=== PATIENT | male | born 1965 | race African-American/Black ===

== ENCOUNTER 2017-01-29 04:45 | Emergency (ER) | payer SELFPAY ==
[2017-01-29 05:37] LABS: Band 1 % (5-11); Hematocrit 31.7 % (42.0-52.0); Hypochromia SLIGHT = 6-15 cells (100X) (0-5/hpf); Mean Platelet Volume 6.8 fL (7.4-10.4); Microcytosis MODERATE=15-30 cells (100X) (0-5/hpf); Neutrophil 67 % (42-75); Red Blood Cell (RBC) Count 4.39 mill/uL (4.70-6.10); Target Cells SLIGHT = 2-5 cells (100X) (0-1/hpf); White Blood Cell (WBC) Count 11.7 thou/uL (4.8-10.8)
[2017-01-29 05:55] LABS: ALT (SGPT) 19 U/L (8-55); AST (SGOT) 35 U/L (5-34); Alkaline Phosphatase 80 U/L (40-150); Anion Gap 18 mmol/L (10-20); BUN (Urea Nitrogen) 19 mg/dL (8.4-25.7); Bilirubin, Total 0.3 mg/dL (0.2-1.2); CK (CPK) 1107 U/L (30-200); Calc. Creatinine Clearance 0 mL/min (70-130); Calcium 8.8 mg/dL (7.8-10.44); Carbon Dioxide 18 mmol/L (22-29); Chloride 106 mmol/L (98-107); Estimated GFR-MDRD 53; Globulin 2.8 g/dL (2.4-3.5); Lipase 13 U/L (8-78); Protein, Total 6.7 g/dL (6.0-8.3)
[2017-01-29 05:59] LABS: Troponin I Less than 0.010 ng/mL (< 0.028)
[2017-01-29 07:20] LABS: Acetaminophen Less than 6.0 mcg/mL (10.0-30.0); Salicylate Less than 8.0 mg/dL (15.0-30.0)
[2017-01-29] MEDS ORDERED: Lorazepam 2 MG/ML VIAL ONE (07:42)
--- NOTE | 2017-01-29 08:31 | RAD ---
SINGLE VIEW OF THE CHEST 01/29/17 COMPARISON: 08/23/16 HISTORY: Chest pain exacerbated by walking. FINDINGS: Single view of the chest shows a normal sized cardiomediastinal silhouette. There is no evidence of consolidation, mass, or pleural effusion. The bones are unremarkable. IMPRESSION: No evidence of acute cardiopulmonary disease. POS: [facility]
[2017-01-29 09:19] LABS: Anion Gap 12 mmol/L (10-20); BUN (Urea Nitrogen) 22 mg/dL (8.4-25.7); CK (CPK) 1114 U/L (30-200); Calc. Creatinine Clearance 0 mL/min (70-130); Calcium 8.5 mg/dL (7.8-10.44); Carbon Dioxide 20 mmol/L (22-29); Chloride 108 mmol/L (98-107); Estimated GFR-MDRD 57
[2017-01-29 09:24] LABS: Troponin I Less than 0.010 ng/mL (< 0.028)
[2017-01-29 13:45] LABS: Bilirubin Negative (Negative); Blood, Urine Negative (Negative); Glucose, Urine (Dipstick) Negative (Negative); Ketone, Urine Negative (Negative); Nitrite Negative (Negative); Protein, Urine (Dipstick) Negative (Neg-Trace); Urobilinogen 0.2 mg/dL (0.2-1.0)
[2017-01-29 13:56] LABS: Amphetamine Not Detected (NotDetected); Methadone Not Detected (NotDetected); Methamphetamine Detected (NotDetected)
[2017-01-29] MEDS ORDERED: traZODone HCl 50 MG TAB PO PRN ×2 (18:44→18:45)
[2017-01-29] MEDS ORDERED: FLUoxetine HCl 20 MG CAP PO SCH (19:00)
[2017-01-29 20:38] LABS: Troponin I Less than 0.010 ng/mL (< 0.028)
[2017-01-29] MEDS ORDERED: busPIRone HCl 10 MG TAB PO SCH (21:00)
[2017-01-30] MEDS ORDERED: FLUoxetine HCl 20 MG CAP PO SCH (09:00)
== END 2017-02-06 17:18 ==
LOC: ERS 04:45
DX: F31.9 Bipolar disorder, unspecified (principal); F15.159 Other stimulant abuse with stimulant-induced psychotic disorder, unspecified; R07.1 Chest pain on breathing; J45.909 Unspecified asthma, uncomplicated; F41.9 Anxiety disorder, unspecified; F20.9 Schizophrenia, unspecified; F17.210 Nicotine dependence, cigarettes, uncomplicated
CPT/HCPCS: 36415; 71010; 80053; 80306; 80307; 81003; 82550; 82553; 83690; 84443; 84484; 85025; 93005; 96361; 96372; 96374; 99406; J2060

== ENCOUNTER 2017-11-10 11:43 | Day surgery (SDC) | payer OTHER ==
[2017-11-09 12:56] VITALS: BMI 24.0
[2017-11-10] MEDS ORDERED: PROPOFOL 200 MG/20 ML VIAL ONE (13:32)
[2017-11-10] MEDS ORDERED: Lidocaine 1% PF 5 ML VIAL ONE (13:32)
--- NOTE | 2017-11-10 17:54 | OP ---
DATE OF SERVICE: 11/10/2017 SURGEON: Augustus Lackey M.D. [employer] CLEANING MACHINE OPERATOR SURGEON: None. PROCEDURES: 1. Esophagogastroduodenoscopy, diagnostic. 2. Colonoscopy, diagnostic. INDICATIONS: 1. Anemia. 2. Elevated CEA. MEDICATIONS: See anesthesia record. FINDINGS: After discussion of the risks, benefits and alternatives of the procedure, informed consen t was obtained and witnessed. Pre-endoscopic cardiopulmonary examination was satisfactory. Timeout was performed before sedation was achieved. Sedation was achieved with anesthesia assistance in the endoscopy unit. A Pentax adult upper endoscope was placed into the oropharynx and passed through the cricopharyngeus under direct visualization. The esophageal mucosa appeared normal throughout with a n irregular Z-line at 40 cm from the incisors. The endoscope was advanced into the stomach. Forward and retroflexed views of the entire gastric mucosa were obtained. The gastric mucosa appeared blu l throughout. The endoscope was advanced through the pylorus and into the first and second portions of the duodenum, which also appeared normal. The upper endoscope was then completely withdrawn and t he patient was repositioned. Digital rectal exam was performed, which was unremarkable. A Pentax adult colonoscope was inserted i nto the anus and passed forward to the ileocolonic anastomosis in the usual fashion. This was locate d at 90 cm from the anal verge. The colon is quite tortuous and patient repositioning and manual pre ssure had to be applied to reach this area. It appears the patient has undergone either a cecectomy or a partial right hemicolectomy with end to end ileocolonic anastomosis. The anastomosis appears he althy. I was able to advance the endoscope about 15 cm into the distal ileum and this also appeared normal. The colonoscope was then slowly withdrawn in the circumferential manner with careful examina tion of the entire colonic mucosa. The quality of the prep was good. The colonic mucosa appeared no rmal throughout. There was no evidence of any polyps or mass lesions throughout the colon. No evide nce of any other mucosal abnormalities. Retroflexion in the rectum was unremarkable. The colonoscop e was completely withdrawn and the patient allowed to recover. The patient tolerated the procedure w ell. There were no immediate post-procedure complications. IMPRESSION: 1. Normal esophagogastroduodenoscopy. 2. Postoperative changes of partial right hemicolectomy, with end to end ileocolonic anastomosis at 90 cm from the anal verge. 3. Healthy appearing ileocolonic anastomosis. 4. Normal terminal ileum. RECOMMENDATIONS: 1. We would repeat colonoscopy at a 5 year interval. 2. If anemia were to persist, or the patient were to develop any troublesome gastrointestinal sympto ms, please refer back to the GI clinic.
== END 2017-11-10 15:36 ==
LOC: SDC 11:43 → EEVIPCON 11:43 → SDC 15:36
PROVIDERS: ATTEND Internal Medicine
PROC: 0DJD8ZZ Inspection of Lower Intestinal Tract, Via Natural or Artificial Opening Endoscopic (ICD-10-PCS; principal; 2017-11-10)
PROC: 0DJ08ZZ Inspection of Upper Intestinal Tract, Via Natural or Artificial Opening Endoscopic (ICD-10-PCS; principal; 2017-11-10)
DX: D64.9 Anemia, unspecified (principal); F20.9 Schizophrenia, unspecified; R97.0 Elevated carcinoembryonic antigen [CEA]; Z79.899 Other long term (current) drug therapy
CPT/HCPCS: J2001; J2704

== ENCOUNTER 2017-11-30 12:09 | Inpatient (IN) | payer MEDICAID, SELFPAY ==
[2017-11-30 12:53] LABS: #Basophils 0.3 thou/uL (0.0-0.2); #Eosinphils 0.2 thou/uL (0.0-0.7); #Lymphocytes 3.2 thou/uL (1.20-3.40); #Monocytes 0.9 thou/uL (0.11-0.59); #Neutrophils 6.3 thou/uL (1.40-6.50); %Basophils 2.6 % (0.0-1.0); %Eosinophils 1.4 % (0.0-10.0); %Lymphocytes 29.9 % (21.0-51.0); Hemoglobin 10.7 g/dL (14.0-18.0); Mean Corpuscular HGB CONC 32.4 g/dL (32.0-36.0); Mean Corpuscular Hemoglobin 22.7 pg (27.0-31.0); Mean Corpuscular Volume 69.9 fL (78.0-98.0); Mean Platelet Volume 7.9 fL (7.4-10.4); Platelet Count 319 thou/uL (130-400); RBC Distribution Width 14.9 % (11.5-14.5); Red Blood Cell (RBC) Count 4.74 mill/uL (4.70-6.10); White Blood Cell (WBC) Count 10.8 thou/uL (4.8-10.8)
[2017-11-30 12:55] LABS: Bilirubin Small (Negative); Blood, Urine Negative (Negative); Clarity CLOUDY (Clear); Glucose, Urine (Dipstick) Negative (Negative); Leukocyte Negative (Negative); Nitrite Negative (Negative); Protein, Urine (Dipstick) Trace mg/dL (Neg-Trace); Specific Gravity, Urine 1.021 (1.002-1.036); Urobilinogen 0.2 mg/dL (0.2-1.0)
[2017-11-30 13:06] LABS: Cocaine Metabolite Screen Detected (NotDetected); Medtox Reader # READER 1; Phencyclidine (PCP) Not Detected (NotDetected); THC/Cannabinoid Screen Not Detected (NotDetected)
[2017-11-30 13:07] LABS: Amphetamine Not Detected (NotDetected); Barbiturates Screen Not Detected (NotDetected); Benzodiazepine Screen Not Detected (NotDetected); Medtox Control Line Valid? VALID (VALID); Methadone Not Detected (NotDetected); Methamphetamine Not Detected (NotDetected); Opiate Screen Not Detected (NotDetected); Oxycodone Screen Not Detected (NotDetected); Tricyclic Screen Not Detected (NotDetected)
[2017-11-30 13:12] LABS: Acetaminophen Less than 6.0 mcg/mL (10.0-30.0); Alcohol Less than 10 mg/dL (Less than 10); Salicylate Less than 8.0 mg/dL (15.0-30.0)
[2017-11-30 13:15] LABS: ALT (SGPT) 71 U/L (8-55); AST (SGOT) 165 U/L (5-34); Albumin 4.6 g/dL (3.5-5.0); Alcohol Less than 10 mg/dL (Less than 10); Alkaline Phosphatase 95 U/L (40-150); Anion Gap 22 mmol/L (10-20); BUN (Urea Nitrogen) 44 mg/dL (8.4-25.7); Bilirubin, Total 0.9 mg/dL (0.2-1.2); Calc. Creatinine Clearance 0 mL/min (70-130); Calcium 9.8 mg/dL (7.8-10.44); Carbon Dioxide 16 mmol/L (22-29); Chloride 104 mmol/L (98-107); Estimated GFR-MDRD 16; Globulin 3.2 g/dL (2.4-3.5); Glucose 111 mg/dL (70-105); Potassium 4.5 mmol/L (3.5-5.1); Protein, Total 7.8 g/dL (6.0-8.3); Sodium 137 mmol/L (136-145)
[2017-11-30 13:23] LABS: Anisocytosis SLIGHT = 6-15 cells (100X) (0-5/hpf); MDiff Complete? YES; Microcytosis SLIGHT = 6-15 cells (100X) (0-5/hpf); Ovalocytes SLIGHT = 2-5 cells (100X) (0-1/hpf); PLT Morphology Comment Appears Adequate; Tear Drops SLIGHT = 2-5 cells (100X) (0-1/hpf)
[2017-11-30 13:41] LABS: CK (CPK) 10425 U/L (30-200)
[2017-11-30] MEDS ORDERED: Senokot 8.6 MG TAB PO PRN (16:27)
[2017-11-30] MEDS ORDERED: Nitroglycerin 0.4 MG TAB (25 Tab Bottle) PO PRN (16:27)
[2017-11-30] MEDS ORDERED: cloNIDine 0.1 MG TAB PO PRN (16:27)
[2017-11-30] MEDS ORDERED: Calcium Carbonate 500 MG ChewTAB PO PRN (16:27)
[2017-11-30 16:48] LABS: Lactic Acid 1.3 mmol/L (0.5-2.2)
[2017-11-30 16:58] LABS: Magnesium 1.8 mg/dL (1.6-2.6); Phosphorus 4.8 mg/dL (2.3-4.7)
[2017-11-30 17:06] LABS: Troponin I 0.049 ng/mL (< 0.028)
--- NOTE | 2017-11-30 21:00 | CON ---
DATE OF CONSULTATION: 11/30/2017 RENAL MEDICINE HISTORY OF PRESENT ILLNESS: Mr. Smith is a 52-year-old black male who was brought to the ER due to confusion. He was subsequently found to have acute renal failure. We are now being consulted for further management of this renal failure. He also had elevated CPK of at least 10,000. The patient has been using some recreational drugs, had been smoking cocaine. He was recently incarcerated and was just released. He is originally from [place]. REVIEW OF SYSTEMS: Positive for myalgia. No nausea, no vomiting. Decreased appetite, decreased energy level. Positive for weight loss. No diarrhea, no constipation, no dysuria, no urinary frequency, no headache, no syncopal episode , no diplopia. PAST MEDICAL HISTORY: The patient has schizophrenia, ? of bipolar disorder, hypertension? PAST SURGICAL HISTORY: Status post upper and lower GI endoscopy. SOCIAL HISTORY: The patient is homeless. No children. Not . Currently no smoking. Occasional IV use of recreational drugs. Education, 9th grade. No blood transfusion. ALLERGIES: No known drug allergies. TRAUMA: None. IMMUNIZATIONS: Up to date. HOSPITALIZATIONS: Please see past medical history. FAMILY HISTORY: Noncontributory. PHYSICAL EXAMINATION: VITAL SIGNS: Blood pressure is noted to be 107/70, heart rate 70. GENERAL: Awake, supine, comfortable, not in overt distress. SKIN: Adequate turgor. HEENT: Pinkish conjunctivae, anicteric sclerae. NECK: No neck mass, no carotid bruits, no JVD. CHEST: No deformities. LUNGS: Clear breath sounds. No wheezing, no crackles. HEART: Normal sinus rhythm. No murmur, no gallops, no rubs. ABDOMEN: Globular, soft, nontender, no masses. EXTREMITIES: No edema, no deformities. NEUROLOGIC: Moving all extremities. No tremors, no asterixis, no ataxia. LABORATORY DATA: Laboratories of 11/30/2017, drug screen is positive for cocaine. Urinalysis, specific gravity of 1.021. No casts noted. Blood negative. Sodium 137, potassium 4.5, chloride 104, carbon dioxide 16, BUN 44, creatinine 4.78. AST 165, ALT 71, albumin 4.6. CPK 10,425. White count 10.8, hemoglobin 10.7. ASSESSMENT AND PLAN: Acute kidney injury, possibility of myoglobinuric acute tubular necrosis is being considered. Unclear if the patient may still have some prerenal component. He does have a very concentrated urine specific gravity. The plan is to start him on isotonic bicarbonate at 150 mL per hour. There is no indication for any dialytic intervention at the present time. I did review his lab work and during the last few years, he has had already an elevated creatinine of 1.65 back on 01/29/2017. If needed, we will do a renal ultrasound in a.m. Agree with empiric volume repletion. Case discussed with Dr. Nunes. FERNANDO
--- NOTE | 2017-11-30 22:41 | PDOC.EVN ---
Event Note - Event Note Event Note: Patient seen and examined at 1900. Note dictated.
--- NOTE | 2017-11-30 23:15 | HP ---
DATE OF ADMISSION: 11/30/2017 PRIMARY CARE PHYSICIAN: RAJANI. He does not see any other physician. CHIEF COMPLAINT: Generalized muscle cramping and suicidal ideation. HISTORY OF PRESENT ILLNESS: The patient is a 52-year-old -[place] male with schizophrenia, who presented to the emergency room with above complaints. The patient was released from the long term on Thursday (27/11/2017). Over the last 3 days, the patient has been staying on the streets without drinking any fluid. He presented to the emergency room today with suicidal ideation and a plan. He also feels generally weak and has cramping in his muscles all over. No chest pain, palpitations, lightheadedness, dizziness reported. He denies any fever, chills, chest pain, shortness of breath, dysuria, hematuria, urgency, nausea, or vomiting. In the emergency room, initial vital signs showed temperature 99, respiration of 18, pulse rate of 84, blood pressure of 107/76 with O2 saturation 99% on room air. His workup was consistent with acute kidney injury with creatinine of 4.78 and BUN of 44. His lactic acid was 1.3 with bicarbonate of 16. Urine drug screen was positive for cocaine. He was started on IV fluids. His CK was 10,425. PAST MEDICAL HISTORY: 1. Schizophrenia. 2. Chronic anemia. 3. History of elevated CEA with recent colonoscopy. 4. Drug abuse. 5. Anxiety, depression, and bipolar disorder. PAST SURGICAL HISTORY: 1. Recent EGD and colonoscopy. 2. Appendectomy. 3. Hernia repair. ALLERGIES: No known drug allergies. SOCIAL HISTORY: The patient has history of cocaine abuse. He denies any alcohol. The patient smokes up to 2-3 packs a day. He was recently released from the long term. He denies any DPOA appointed yet. FAMILY HISTORY: Negative for liver disease, GI disorders, or heart disease. CURRENT HOME MEDICATIONS: The patient is on multiple psych medications. He is unable to recall any of his medications. REVIEW OF SYSTEMS: The following complete review of systems was negative, unless otherwise mentioned in the HPI or below: Constitutional: Weight loss or gain, ability to conduct usual activities. Skin: Rash, itching. Eyes: Double vision, pain. ENT/Mouth: Nose bleeding, neck stiffness, pain, tenderness. Cardiovascular: Palpitations, dyspnea on exertion, orthopnea. Respiratory: Shortness of breath, wheezing, cough, hemoptysis, fever, or night sweats. Gastrointestinal: Poor appetite, abdominal pain, heartburn, nausea, vomiting, constipation, or diarrhea. Genitourinary: Urgency, frequency, dysuria, nocturia. Musculoskeletal: Pain, swelling. Neurologic/Psychiatric: Anxiety, depression. Allergy/Immunologic: Skin rash, bleeding tendency. PHYSICAL EXAMINATION: VITAL SIGNS: As discussed above. He is feeling better after IV fluids. HEENT: Head, atraumatic and normocephalic. Sclerae are anicteric. Dry mucous membrane. No oral lesion. NECK: Supple. No JVD, no carotid bruit. LUNGS: Essentially clear to auscultation bilaterally. No wheezing, rales, or rhonchi. HEART: S1, S2 present. Regular rate and rhythm. No murmur, rubs, or gallops appreciated. ABDOMEN: Soft. Bowel sounds present. No rebound or guarding. No costovertebral angle tenderness. EXTREMITIES: No edema or calf tenderness. There is generalized muscle cramping. SKIN: Warm and dry. LYMPH NODES: No palpable lymph nodes in the neck. PERIPHERAL VASCULAR: Radial pulses are palpable bilaterally. MUSCULOSKELETAL: No joint swelling or tenderness. NEUROLOGY: Grossly nonfocal. PSYCHIATRIC: Alert, awake, oriented x3. LABORATORY AND X-RAY FINDINGS: CBC showed WBC 10.8 with hemoglobin 10.7, hematocrit 33.2, platelet of 319. Magnesium is normal. Lactic acid is 1.3. Troponin is 0.049. AST 165, ALT 71, creatinine 10,425, bicarbonate 16. Sodium 137, potassium 4.5. Urinalysis was negative for wbc or bacteria. Urine drug screen was positive for cocaine. Ketones was 1.15. Tylenol, salicylate, and alcohol were negative. Chest x-ray in the past by my review was negative. Telemetry monitoring by my review showed sinus rhythm. EKG by my review showed sinus rhythm without significant ST-T wave changes. IMPRESSION: 1. Acute kidney injury with rhabdomyolysis/Dehydration. 2. Suicidal ideation. 3. Chronic anemia with recent EGD and colonoscopy. 4. Polysubstance abuse. The patient is positive for cocaine. 5. Tobacco dependence. 6. Abnormal liver function tests, probably secondary to dehydration. 7. Metabolic acidosis. 8. Starvation ketosis. 9. Anxiety, depression, bipolar disorder, and schizophrenia. 10. Elevated troponins in the indeterminate range probably secondary to cocaine abuse. PLAN: The patient will be monitored in the telemetry unit. Sitter will be arranged. We would consult Nephrology. We will start him on bicarbonate drip. We will repeat LFTs in a.m. Repeat CK in a.m. Suicide precautions. Vital signs every 4 hourly. Plan of care was discussed with the patient in detail, he stated understanding. The patient will require MR evaluation when medically cleared. FERNANDO
[2017-12-01 00:55] LABS: Troponin I 0.025 ng/mL (< 0.028)
[2017-12-01 04:00] LABS: ALT (SGPT) 60 U/L (8-55); AST (SGOT) 101 U/L (5-34); Albumin 3.3 g/dL (3.5-5.0); Alkaline Phosphatase 73 U/L (40-150); Anion Gap 12 mmol/L (10-20); BUN (Urea Nitrogen) 42 mg/dL (8.4-25.7); Bilirubin, Total 0.5 mg/dL (0.2-1.2); Calc. Creatinine Clearance 0 mL/min (70-130); Calcium 7.7 mg/dL (7.8-10.44); Carbon Dioxide 21 mmol/L (22-29); Chloride 109 mmol/L (98-107); Estimated GFR-MDRD 22; Globulin 2.2 g/dL (2.4-3.5); Glucose 121 mg/dL (70-105); Magnesium 1.6 mg/dL (1.6-2.6); Phosphorus 4.2 mg/dL (2.3-4.7); Potassium 3.8 mmol/L (3.5-5.1); Protein, Total 5.5 g/dL (6.0-8.3); Sodium 138 mmol/L (136-145)
[2017-12-01 04:19] LABS: CK (CPK) 5490 U/L (30-200)
[2017-12-01] MEDS ORDERED: Heparin 5,000 UNITS/ML VIAL ONE (08:52)
--- NOTE | 2017-12-01 11:49 | ULT ---
BILATERAL RENAL ULTRASOUND: HISTORY: Renal failure. FINDINGS: The right kidney measures 9.7 cm in length and the left kidney measures 10.5 cm in length. No focal mass or hydronephrosis is seen. The urinary bladder volume is 465 mL. The urinary bladder is grossl y unremarkable. IMPRESSION: No evidence of high-grade obstruction. POS: [facility]
[2017-12-01] MEDS ORDERED: Haloperidol 1 MG TAB ONE (12:31)
[2017-12-01] MEDS: Docusate 100 MG CAP PO SCH ×3 (16:55→20:16)
[2017-12-01] MEDS: Heparin 5,000 UNITS/ML VIAL SC SCH ×3 (16:55→20:18)
[2017-12-01] MEDS: Folic Acid 1 MG TAB PO SCH (16:56)
[2017-12-01] MEDS: Aspirin 81 mg Enteric Coated Tablet PO SCH (16:56)
[2017-12-01] MEDS: Multivit, Therapeutic 1 TAB PO SCH (16:56)
[2017-12-01] MEDS ORDERED: Ziprasidone 20 MG VIAL IM PRN (16:58)
--- NOTE | 2017-12-01 17:23 | PDOC.PN ---
- Subjective Encounter Start Date: 12/01/17 Encounter Start Time: 17:22 CC: hallucination and suicidal ideation Patient seen and examined with 1:1 in the room. States that he is having some hallucinations and suicidal thoughts. Denies fever, chills, SOB, CP. - Objective Resuscitation Status: Resuscitation Status FULL:Full Resuscitation Vital Signs & Weight: Vital Signs (12 hours) Temp Pulse Resp BP Pulse Ox 12/01/17 15:15 96.3 F L 71 18 127/66 99 Weight Weight 167 lb 14.4 oz Result Diagrams: 12/17/17 08:48 12/17/17 08:48 Phys Exam - Physical Examination Constitutional: NAD HEENT: PERRLA, moist MMs Neck: no JVD, supple, full ROM Respiratory: no wheezing, no rales, no rhonchi, clear to auscultation bilateral Cardiovascular: RRR, no significant murmur, no rub Gastrointestinal: soft, non-tender, no distention Musculoskeletal: no edema, pulses present Neurological: non-focal, normal sensation, moves all 4 limbs Psychiatric: normal affect, A&O x 3 Skin: normal turgor Dx/Plan (1) Acute on chronic kidney failure Code(s): N17.9 - ACUTE KIDNEY FAILURE, UNSPECIFIED; N18.9 - CHRONIC KIDNEY DISEASE, UNSPECIFIED Status: Acute Comment: Improved (2) Suicidal behavior Code(s): R46.89 - OTHER SYMPTOMS AND SIGNS INVOLVING APPEARANCE AND BEHAVIOR Status: Acute Comment: Continue psych medications. Awaiting for patient to be medically optimized so that will consult [facility]. (3) Rhabdomyolysis Code(s): M62.82 - RHABDOMYOLYSIS Status: Acute Comment: Resolving (4) Cocaine abuse Code(s): F14.10 - COCAINE ABUSE, UNCOMPLICATED Status: Acute Comment: urinalysis positive for cocaine. Will continue supportive treatment. (5) Schizophrenia Code(s): F20.9 - SCHIZOPHRENIA, UNSPECIFIED Status: Acute Comment: continue current treatment. (6) Depression Code(s): F32.9 - MAJOR DEPRESSIVE DISORDER, SINGLE EPISODE, UNSPECIFIED Status : Acute Comment: Inpatient placement. - Plan DVT proph w/SCDs * . see above. Review of Systems - Review of Systems Constitutional: negative: fever, chills, sweats, weakness, malaise, other Eyes: negative: Pain, Vision Change, Conjunctivae Inflammation, Eyelid Inflammation, Redness, Other ENT: negative: Ear Pain, Ear Discharge, Nose Pain, Nose Discharge, Nose Congestion, Mouth Pain, Mouth Swelling, Throat Pain, Throat Swelling, Other Respiratory: negative: Cough, Dry, Shortness of Breath, Hemoptysis, SOB with Excertion, Pleuritic Pain, Sputum, Wheezing Cardiovascular: negative: chest pain, palpitations, orthopnea, paroxysmal nocturnal dyspnea, edema, light headedness, other Gastrointestinal: negative: Nausea, Vomiting, Abdominal Pain, Diarrhea, Constipation, Melena, Hematochezia, Other Genitourinary: negative: Dysuria, Frequency, Incontinence, Hematuria, Retention , Other Musculoskeletal: negative: Neck Pain, Shoulder Pain, Arm Pain, Back Pain, Hand Pain, Leg Pain, Foot Pain, Other Skin: negative: Rash, Lesions, Lebron, Bruising, Other Neurological: negative: Weakness, Numbness, Incoordination, Change in Speech, Confusion, Seizures, Other Other: suicidal thoughts - Medications/Allergies Allergies/Adverse Reactions: Allergies Allergy/AdvReac Type Severity Reaction Status Date / Time No Known Drug Allergies Allergy Verified 11/09/17 12:56 shellfish derived Allergy Verified 12/10/17 15:40 Medications: Current Medications Acetaminophen (Tylenol) 650 mg PO Q4H PRN PRN Reason: Headache/Fever or Pain Aspirin (Ecotrin) 81 mg PO DAILY [facility] Last Admin: 12/01/17 16:56 Dose: Not Given Benztropine Mesylate (Cogentin) 0.5 mg PO BID [facility] Buspirone HCl (Buspar) 15 mg PO BID [facility] Calcium Carbonate (Tums) 1,000 mg PO Q4H PRN PRN Reason: Heartburn or Indigestion Clonidine (Catapres) 0.1 mg PO Q4H PRN PRN Reason: Systolic BP > 180 Docusate Sodium (Colace) 100 mg PO BID [facility] Last Admin: 12/01/17 16:55 Dose: Not Given Famotidine (Pepcid) 20 mg PO QPM [facility] Fluoxetine HCl (Prozac) 40 mg PO DAILY [facility] Folic Acid (Folvite) 1 mg PO DAILY [facility] Last Admin: 12/01/17 16:56 Dose: Not Given Haloperidol (Haldol) 5 mg PO BID [facility] Heparin Sodium (Porcine) (Heparin) 5,000 units SC BID [facility] Last Admin: 12/01/17 16:55 Dose: Not Given Sodium Bicarbonate 150 meq/ (Dextrose/Water) 1,150 mls @ 150 mls/hr IV .Q7H40M [facility] Multivitamins (Theragran) 1 tab PO DAILY [facility] Last Admin: 12/01/17 16:56 Dose: Not Given Nitroglycerin (Nitrostat) 0.4 mg PO Q5MIN PRN PRN Reason: Chest Pain Pneumococcal Polyvalent Vaccine (Pneumovax 23) 0.5 ml IM .ONCE ONE Stop: 12/02/17 09:01 Senna (Senokot) 2 tab PO HSPRN PRN PRN Reason: Constipation Thiamine HCl (Thiamine) 100 mg PO DAILY [facility] Last Admin: 12/01/17 16:56 Dose: Not Given Ziprasidone (Geodon) 10 mg IM Q2H PRN PRN Reason: Agitation
[2017-12-01] MEDS: Sodium Bicarbonate 150 MEQ in Dextrose 5% in Water 1,000 ML IV SCH ×4 (17:28→17:39)
[2017-12-01] MEDS: Famotidine 20 MG TAB PO SCH ×2 (17:29→20:15)
[2017-12-01] MEDS: busPIRone HCl 10 MG TAB PO SCH (20:12)
[2017-12-01] MEDS: Benztropine 1 MG TAB PO SCH (20:13)
[2017-12-01] MEDS: Haloperidol 5 MG TAB PO SCH (20:15)
[2017-12-02] MEDS: Sodium Bicarbonate 150 MEQ in Dextrose 5% in Water 1,000 ML IV SCH ×2 (02:09→09:25)
[2017-12-02 05:10] LABS: Creatinine, Urine 44.24 mg/dL (63-166)
[2017-12-02 06:23] LABS: ALT (SGPT) 46 U/L (8-55); AST (SGOT) 54 U/L (5-34); Albumin 3.2 g/dL (3.5-5.0); Alkaline Phosphatase 96 U/L (40-150); Anion Gap 11 mmol/L (10-20); BUN (Urea Nitrogen) 29 mg/dL (8.4-25.7); Bilirubin, Total 0.3 mg/dL (0.2-1.2); CK (CPK) 2505 U/L (30-200); Calc. Creatinine Clearance 38 mL/min (70-130); Calcium 7.8 mg/dL (7.8-10.44); Carbon Dioxide 27 mmol/L (22-29); Chloride 106 mmol/L (98-107); Estimated GFR-MDRD 34; Globulin 2.2 g/dL (2.4-3.5); Glucose 130 mg/dL (70-105); Magnesium 1.3 mg/dL (1.6-2.6); Phosphorus 2.5 mg/dL (2.3-4.7); Potassium 3.3 mmol/L (3.5-5.1); Protein, Total 5.4 g/dL (6.0-8.3); Sodium 141 mmol/L (136-145)
[2017-12-02] MEDS: FLUoxetine HCl 20 MG CAP PO SCH (08:29)
[2017-12-02] MEDS: Heparin 5,000 UNITS/ML VIAL SC SCH ×2 (08:29→21:04)
[2017-12-02] MEDS: Aspirin 81 mg Enteric Coated Tablet PO SCH (08:29)
[2017-12-02] MEDS: Multivit, Therapeutic 1 TAB PO SCH (08:30)
[2017-12-02] MEDS: Benztropine 1 MG TAB PO SCH ×2 (08:30→21:02)
[2017-12-02] MEDS: busPIRone HCl 10 MG TAB PO SCH ×2 (08:30→21:03)
[2017-12-02] MEDS: Folic Acid 1 MG TAB PO SCH (08:30)
[2017-12-02] MEDS: Haloperidol 5 MG TAB PO SCH ×2 (08:30→21:04)
[2017-12-02] MEDS: Docusate 100 MG CAP PO SCH ×2 (08:30→21:03)
[2017-12-02] MEDS ORDERED: Lactated Ringer's 1,000 ML IV SCH (08:45)
[2017-12-02] MEDS ORDERED: Potassium Chloride 20 MEQ TAB PO SCH (09:00)
[2017-12-02] MEDS: Lactated Ringer's 1,000 ML IV SCH ×2 (09:27→17:09)
--- NOTE | 2017-12-02 11:08 | PRG ---
DATE OF SERVICE: 12/02/2017 RENAL MEDICINE SUBJECTIVE: Mr. Smith is a 52-year-old black male who was seen for his acute kidney injury. At th at time, he had elevated CPK. The possibility of remains. Initially we decided to simply volu me replete this patient suspecting that there may be still a prerenal component. He did improve with his renal function with IV hydration. He was given isotonic bicarbonate. I have decided to change isotonic bicarbonate now to lactated ringer down to 25 mL per hour. He is feeling better. He voices no new complaints. He denies any chest pain or shortness of breath. PHYSICAL EXAMINATION: VITAL SIGNS: Blood pressure 115/72, heart rate 72, respiratory rate 16, temperature 98.2, pulse ox 9 5%. GENERAL: Noted to be awake, alert, comfortable, not in overt distress SKIN: Adequate turgor. HEENT: He has pinkish conjunctivae, anicteric sclerae. NECK: No neck mass, no carotid bruits, no JVD. CHEST: No deformities. LUNGS: Clear breath sounds. No wheezing, no crackles. HEART: Normal sinus rhythm. No murmurs, no gallops, no rubs. ABDOMEN: Globular, soft, nontender, no masses. EXTREMITIES: No edema, no deformities. MEDICATIONS: Medications of 12/02/2017 was reviewed. LABORATORY DATA: Laboratories of 12/02/2017; sodium 141, potassium 3.3, chloride 106, carbon dioxide 27, BUN 29, creatinine 2.45, CPK 2505, albumin 3.2, white count 10.8, hemoglobin 10.7. ASSESSMENT AND PLAN: 1. Acute kidney injury - most likely a hemodynamically mediated renal dysfunction. Continue IV hydr ation. Renal function is much improved. There is no indication for any dialytic intervention. 2. Mild rhabdomyolysis, clinically improving. Continue supportive care. Recheck base met and CBC in a.m.
[2017-12-02] MEDS ORDERED: Magnesium 2 GM/NS 0.9% 100 ML 2 GM in Premix Bag 1 BAG IVPB SCH (14:00)
--- NOTE | 2017-12-02 14:13 | PDOC.PN ---
- Subjective Encounter Start Date: 12/02/17 Encounter Start Time: 14:12 Patient seen and examined by me this morning with 1:1 nurse in the room. - Objective Resuscitation Status: Resuscitation Status FULL:Full Resuscitation MAR Reviewed: Yes Vital Signs & Weight: Vital Signs (12 hours) Temp Pulse Resp BP Pulse Ox 12/02/17 11:32 98.4 F 68 16 122/80 95 12/02/17 07:28 98.2 F 72 16 115/72 95 12/02/17 07:05 94 L 12/02/17 04:00 98.2 F 75 20 119/72 94 L 12/02/17 03:42 95 Weight Weight 167 lb 12.8 oz I&O: 12/01/17 12/02/17 12/03/17 06:59 06:59 06:59 Intake Total 2970 Output Total 1400 Balance 1570 Result Diagrams: 11/30/17 12:41 12/02/17 05:08 Phys Exam - Physical Examination Constitutional: NAD HEENT: PERRLA, moist MMs Neck: no JVD, supple, full ROM Respiratory: no wheezing, no rales, no rhonchi, clear to auscultation bilateral Cardiovascular: RRR, no significant murmur Gastrointestinal: soft, non-tender, no distention, positive bowel sounds Musculoskeletal: no edema, pulses present Neurological: non-focal, normal sensation Psychiatric: normal affect, A&O x 3 Dx/Plan (1) Acute on chronic kidney failure Code(s): N17.9 - ACUTE KIDNEY FAILURE, UNSPECIFIED; N18.9 - CHRONIC KIDNEY DISEASE, UNSPECIFIED Status: Acute Comment: likely pre-renal in etiology. Improving. Will continue IV hydration. nephrology workup/treatment in progress. (2) Suicidal behavior Code(s): R46.89 - OTHER SYMPTOMS AND SIGNS INVOLVING APPEARANCE AND BEHAVIOR Status: Acute Comment: Continue psych medications. Awaiting for patient to be medically optimized so that will consult [facility]. (3) Rhabdomyolysis Code(s): M62.82 - RHABDOMYOLYSIS Status: Acute Comment: Will continue fluids and try and get Rhado below 1000. Today CPK is ~2500 (4) Cocaine abuse Code(s): F14.10 - COCAINE ABUSE, UNCOMPLICATED Status: Acute Comment: urinalysis positive for cocaine. Will continue supportive treatment. (5) Schizophrenia Code(s): F20.9 - SCHIZOPHRENIA, UNSPECIFIED Status: Acute Comment: continue current treatment. (6) Depression Code(s): F32.9 - MAJOR DEPRESSIVE DISORDER, SINGLE EPISODE, UNSPECIFIED Status : Acute Comment: Will continue current medication and have [facility] screen patient onces medically optimized. - Plan * . Review of Systems - Review of Systems Constitutional: negative: fever, chills, sweats, weakness, malaise, other Eyes: negative: Pain, Vision Change, Conjunctivae Inflammation, Eyelid Inflammation, Redness, Other ENT: negative: Ear Pain, Ear Discharge, Nose Pain, Nose Discharge, Nose Congestion, Mouth Pain, Mouth Swelling, Throat Pain, Throat Swelling, Other Respiratory: negative: Cough, Dry, Shortness of Breath, Hemoptysis, SOB with Excertion, Pleuritic Pain, Sputum, Wheezing Cardiovascular: negative: chest pain, palpitations, orthopnea, paroxysmal nocturnal dyspnea, edema, light headedness, other Gastrointestinal: Melena. negative: Nausea, Vomiting, Abdominal Pain, Diarrhea , Constipation, Hematochezia, Other Genitourinary: negative: Dysuria, Frequency, Incontinence, Hematuria, Retention , Other Musculoskeletal: negative: Neck Pain, Shoulder Pain, Arm Pain, Back Pain, Hand Pain, Leg Pain, Foot Pain, Other Skin: negative: Rash, Lesions, Lebron, Bruising, Other Neurological: negative: Weakness, Numbness, Incoordination, Change in Speech, Confusion, Seizures, Other Other: Denies visual and auditory hallucination. - Medications/Allergies Allergies/Adverse Reactions: Allergies Allergy/AdvReac Type Severity Reaction Status Date / Time No Known Drug Allergies Allergy Verified 11/09/17 12:56 Medications: Current Medications Acetaminophen (Tylenol) 650 mg PO Q4H PRN PRN Reason: Headache/Fever or Pain Aspirin (Ecotrin) 81 mg PO DAILY [facility] Last Admin: 12/02/17 08:29 Dose: 81 mg Benztropine Mesylate (Cogentin) 0.5 mg PO BID [facility] Last Admin: 12/02/17 08:30 Dose: 0.5 mg Buspirone HCl (Buspar) 15 mg PO BID [facility] Last Admin: 12/02/17 08:30 Dose: 15 mg Calcium Carbonate (Tums) 1,000 mg PO Q4H PRN PRN Reason: Heartburn or Indigestion Clonidine (Catapres) 0.1 mg PO Q4H PRN PRN Reason: Systolic BP > 180 Docusate Sodium (Colace) 100 mg PO BID [facility] Last Admin: 12/02/17 08:30 Dose: Not Given Famotidine (Pepcid) 20 mg PO QPM [facility] Last Admin: 12/01/17 20:15 Dose: 20 mg Fluoxetine HCl (Prozac) 40 mg PO DAILY [facility] Last Admin: 12/02/17 08:29 Dose: 40 mg Folic Acid (Folvite) 1 mg PO DAILY [facility] Last Admin: 12/02/17 08:30 Dose: 1 mg Haloperidol (Haldol) 5 mg PO BID [facility] Last Admin: 12/02/17 08:30 Dose: 5 mg Heparin Sodium (Porcine) (Heparin) 5,000 units SC BID [facility] Last Admin: 12/02/17 08:29 Dose: 5,000 units Magnesium Sulfate 2 gm/ Device 100 mls @ 100 mls/hr IVPB ONE [facility] Stop: 12/02/17 16:00 Last Admin: 12/02/17 14:06 Dose: 100 mls Lactated Ringer's (Lactated Ringer's) 1,000 mls @ 125 mls/hr IV .Q8H [facility] Last Admin: 12/02/17 09:27 Dose: 1,000 mls Multivitamins (Theragran) 1 tab PO DAILY [facility] Last Admin: 12/02/17 08:30 Dose: 1 tab Nitroglycerin (Nitrostat) 0.4 mg PO Q5MIN PRN PRN Reason: Chest Pain Senna (Senokot) 2 tab PO HSPRN PRN PRN Reason: Constipation Sodium Chloride (Flush - Normal Saline) 10 ml IVF Q12HR [facility] Last Admin: 12/02/17 09:27 Dose: 10 ml Sodium Chloride (Flush - Normal Saline) 10 ml IVF PRN PRN PRN Reason: Saline Flush Thiamine HCl (Thiamine) 100 mg PO DAILY [facility] Last Admin: 12/02/17 08:29 Dose: 100 mg Ziprasidone (Geodon) 10 mg IM Q2H PRN PRN Reason: Agitation
[2017-12-02] MEDS: Famotidine 20 MG TAB PO SCH (21:03)
[2017-12-03] MEDS: Lactated Ringer's 1,000 ML IV SCH ×4 (01:28→21:21)
[2017-12-03 06:21] LABS: Anion Gap 12 mmol/L (10-20); BUN (Urea Nitrogen) 23 mg/dL (8.4-25.7); CK (CPK) 1308 U/L (30-200); Calc. Creatinine Clearance 43 mL/min (70-130); Calcium 7.9 mg/dL (7.8-10.44); Carbon Dioxide 26 mmol/L (22-29); Chloride 107 mmol/L (98-107); Estimated GFR-MDRD 39; Glucose 97 mg/dL (70-105); Magnesium 1.5 mg/dL (1.6-2.6); Sodium 141 mmol/L (136-145)
[2017-12-03] MEDS ORDERED: Magnesium 2 GM/NS 0.9% 100 ML 2 GM in Premix Bag 1 BAG IVPB SCH (08:00)
--- NOTE | 2017-12-03 08:03 | PDOC.PN ---
- Subjective Encounter Start Date: 12/03/17 Encounter Start Time: 08:01 NAD. patient seen and examined. States he hears the voices sometimes but right now doing very well. - Objective Resuscitation Status: Resuscitation Status FULL:Full Resuscitation MAR Reviewed: Yes Vital Signs & Weight: Vital Signs (12 hours) Temp Pulse Resp BP Pulse Ox 12/03/17 07:23 98.3 F 68 14 123/79 95 12/03/17 04:00 98.1 F 63 16 122/79 94 L Weight Weight 167 lb 12.8 oz I&O: 12/02/17 12/03/17 12/04/17 06:59 06:59 06:59 Intake Total 2970 2637 Output Total 1400 3475 Balance 1570 -838 Result Diagrams: 11/30/17 12:41 12/03/17 05:53 Phys Exam - Physical Examination Constitutional: NAD HEENT: PERRLA, moist MMs Neck: no JVD Respiratory: no wheezing, no rales, no rhonchi Cardiovascular: RRR, no significant murmur Gastrointestinal: soft, non-tender, no distention Musculoskeletal: no edema, pulses present Psychiatric: normal affect Skin: no rash, normal turgor Dx/Plan (1) Acute on chronic kidney failure Code(s): N17.9 - ACUTE KIDNEY FAILURE, UNSPECIFIED; N18.9 - CHRONIC KIDNEY DISEASE, UNSPECIFIED Status: Acute Comment: likely pre-renal in etiology. Improving. Will continue IV hydration. nephrology workup/treatment in progress. (2) Suicidal behavior Code(s): R46.89 - OTHER SYMPTOMS AND SIGNS INVOLVING APPEARANCE AND BEHAVIOR Status: Acute Comment: Continue psych medications. Awaiting for patient to be medically optimized so that will consult [facility]. (3) Rhabdomyolysis Code(s): M62.82 - RHABDOMYOLYSIS Status: Acute Comment: Will continue fluids and try and get Rhado below 1000. Today CPK is ~1300 (4) Cocaine abuse Code(s): F14.10 - COCAINE ABUSE, UNCOMPLICATED Status: Acute Comment: urinalysis positive for cocaine. Will continue supportive treatment. (5) Schizophrenia Code(s): F20.9 - SCHIZOPHRENIA, UNSPECIFIED Status: Acute Comment: continue current treatment. (6) Depression Code(s): F32.9 - MAJOR DEPRESSIVE DISORDER, SINGLE EPISODE, UNSPECIFIED Status : Acute Comment: Will continue current medication and have [facility] screen patient onces medically optimized. - Plan * . Review of Systems - Review of Systems Constitutional: negative: fever, chills, sweats, weakness, malaise, other Eyes: negative: Pain, Vision Change, Conjunctivae Inflammation, Eyelid Inflammation, Redness, Other ENT: negative: Ear Pain, Ear Discharge, Nose Pain, Nose Discharge, Nose Congestion, Mouth Pain, Mouth Swelling, Throat Pain, Throat Swelling, Other Respiratory: negative: Cough, Dry, Shortness of Breath, Hemoptysis, SOB with Excertion, Pleuritic Pain, Sputum, Wheezing Cardiovascular: negative: chest pain, palpitations, orthopnea, paroxysmal nocturnal dyspnea, edema, light headedness, other Gastrointestinal: negative: Nausea, Vomiting, Abdominal Pain, Diarrhea, Constipation, Melena, Hematochezia, Other Genitourinary: negative: Dysuria, Frequency, Incontinence, Hematuria, Retention , Other Musculoskeletal: negative: Neck Pain, Shoulder Pain, Arm Pain, Back Pain, Hand Pain, Leg Pain, Foot Pain, Other Skin: negative: Rash, Lesions, Lebron, Bruising, Other Neurological: negative: Weakness, Numbness, Incoordination, Change in Speech, Confusion, Seizures, Other - Medications/Allergies Allergies/Adverse Reactions: Allergies Allergy/AdvReac Type Severity Reaction Status Date / Time No Known Drug Allergies Allergy Verified 11/09/17 12:56 Medications: Current Medications Acetaminophen (Tylenol) 650 mg PO Q4H PRN PRN Reason: Headache/Fever or Pain Aspirin (Ecotrin) 81 mg PO DAILY [facility] Last Admin: 12/02/17 08:29 Dose: 81 mg Benztropine Mesylate (Cogentin) 0.5 mg PO BID [facility] Last Admin: 12/02/17 21:02 Dose: 0.5 mg Buspirone HCl (Buspar) 15 mg PO BID [facility] Last Admin: 12/02/17 21:03 Dose: 15 mg Calcium Carbonate (Tums) 1,000 mg PO Q4H PRN PRN Reason: Heartburn or Indigestion Clonidine (Catapres) 0.1 mg PO Q4H PRN PRN Reason: Systolic BP > 180 Docusate Sodium (Colace) 100 mg PO BID [facility] Last Admin: 12/02/17 21:03 Dose: Not Given Famotidine (Pepcid) 20 mg PO QPM [facility] Last Admin: 12/02/17 21:03 Dose: 20 mg Fluoxetine HCl (Prozac) 40 mg PO DAILY [facility] Last Admin: 12/02/17 08:29 Dose: 40 mg Folic Acid (Folvite) 1 mg PO DAILY [facility] Last Admin: 12/02/17 08:30 Dose: 1 mg Haloperidol (Haldol) 5 mg PO BID [facility] Last Admin: 12/02/17 21:04 Dose: 5 mg Heparin Sodium (Porcine) (Heparin) 5,000 units SC BID [facility] Last Admin: 12/02/17 21:04 Dose: 5,000 units Lactated Ringer's (Lactated Ringer's) 1,000 mls @ 125 mls/hr IV .Q8H [facility] Last Admin: 12/03/17 03:49 Dose: 1,000 mls Magnesium Sulfate 2 gm/ Device 100 mls @ 100 mls/hr IVPB NOW [facility] Stop: 12/03/17 12:00 Multivitamins (Theragran) 1 tab PO DAILY [facility] Last Admin: 12/02/17 08:30 Dose: 1 tab Nitroglycerin (Nitrostat) 0.4 mg PO Q5MIN PRN PRN Reason: Chest Pain Senna (Senokot) 2 tab PO HSPRN PRN PRN Reason: Constipation Sodium Chloride (Flush - Normal Saline) 10 ml IVF Q12HR [facility] Last Admin: 12/02/17 21:04 Dose: Not Given Sodium Chloride (Flush - Normal Saline) 10 ml IVF PRN PRN PRN Reason: Saline Flush Thiamine HCl (Thiamine) 100 mg PO DAILY [facility] Last Admin: 12/02/17 08:29 Dose: 100 mg Ziprasidone (Geodon) 10 mg IM Q2H PRN PRN Reason: Agitation
[2017-12-03] MEDS: Benztropine 1 MG TAB PO SCH ×2 (08:09→21:24)
[2017-12-03] MEDS: Multivit, Therapeutic 1 TAB PO SCH (08:09)
[2017-12-03] MEDS: FLUoxetine HCl 20 MG CAP PO SCH (08:09)
[2017-12-03] MEDS: Docusate 100 MG CAP PO SCH ×2 (08:09→21:23)
[2017-12-03] MEDS: Aspirin 81 mg Enteric Coated Tablet PO SCH (08:10)
[2017-12-03] MEDS: Folic Acid 1 MG TAB PO SCH (08:10)
[2017-12-03] MEDS: Heparin 5,000 UNITS/ML VIAL SC SCH ×2 (08:10→21:27)
[2017-12-03] MEDS: Haloperidol 5 MG TAB PO SCH ×2 (08:10→21:22)
[2017-12-03] MEDS: busPIRone HCl 10 MG TAB PO SCH ×2 (08:10→21:23)
--- NOTE | 2017-12-03 09:51 | PRG ---
DATE OF SERVICE: 12/03/2017 RENAL MEDICINE SUBJECTIVE: Mr. Smith is a 52-year-old black male who was seen for his acute kidney injury. We fe lt that initially he may have myoglobinuria ATN. However, his renal function improved with volume re pletion. His creatinine much improved this morning. This suggests he may simply have hemodynamicall y mediated renal dysfunction. No other complaints today. PHYSICAL EXAMINATION: VITAL SIGNS: Blood pressure is 123/79, heart rate 68, respiratory rate 14, temperature 98.3, pulse o x 95%. GENERAL: Awake, flat affect, not in distress. SKIN: Adequate turgor. HEENT: Pinkish conjunctivae, anicteric sclerae. NECK: No neck mass, no carotid bruits, no JVD. CHEST: No deformities. LUNGS: Clear breath sounds, no wheezing, no crackles. HEART: Normal sinus rhythm. No murmurs, no gallops, no rubs. ABDOMEN: Globular, soft, nontender, no masses. EXTREMITIES: No edema, no deformities. MEDICATIONS: Medications of 12/03/2017 was reviewed. LABORATORY DATA: Laboratories of 12/03/2017; sodium 141, potassium 4, chloride 107, carbon dioxide 2 6, BUN 23, creatinine 2.17, calcium 7.9, magnesium 1.5, CK 1308. ASSESSMENT AND PLAN: 1. Acute kidney injury - hemodynamically mediated renal dysfunction. Continue supportive care. Cur rently on lactated Ringer's at 125 mL per hour. There is no indication for any dialytic intervention with this patient. 2. Rhabdomyolysis, clinically improving. Continue supportive care. Overall, agree with current management. Recheck base met and CBC in a.m.
[2017-12-03] MEDS: Famotidine 20 MG TAB PO SCH (21:24)
[2017-12-04] MEDS: Lactated Ringer's 1,000 ML IV SCH ×4 (03:42→21:20)
[2017-12-04 05:58] LABS: Anion Gap 13 mmol/L (10-20); BUN (Urea Nitrogen) 18 mg/dL (8.4-25.7); CK (CPK) 685 U/L (30-200); Calc. Creatinine Clearance 47 mL/min (70-130); Calcium 8.3 mg/dL (7.8-10.44); Carbon Dioxide 23 mmol/L (22-29); Chloride 108 mmol/L (98-107); Estimated GFR-MDRD 44; Glucose 97 mg/dL (70-105); Magnesium 1.3 mg/dL (1.6-2.6); Potassium 4.1 mmol/L (3.5-5.1); Sodium 140 mmol/L (136-145)
[2017-12-04] MEDS: Benztropine 1 MG TAB PO SCH ×2 (09:09→21:13)
[2017-12-04] MEDS: Docusate 100 MG CAP PO SCH ×2 (09:10→21:14)
[2017-12-04] MEDS: busPIRone HCl 10 MG TAB PO SCH ×2 (09:10→21:14)
[2017-12-04] MEDS: Folic Acid 1 MG TAB PO SCH (09:10)
[2017-12-04] MEDS: FLUoxetine HCl 20 MG CAP PO SCH (09:10)
[2017-12-04] MEDS: Haloperidol 5 MG TAB PO SCH ×2 (09:10→21:14)
[2017-12-04] MEDS: Multivit, Therapeutic 1 TAB PO SCH (09:10)
[2017-12-04] MEDS: Heparin 5,000 UNITS/ML VIAL SC SCH ×2 (09:10→21:14)
[2017-12-04] MEDS: Aspirin 81 mg Enteric Coated Tablet PO SCH (09:10)
--- NOTE | 2017-12-04 09:57 | PRG ---
DATE OF SERVICE: 12/04/2017 SUBJECTIVE: Mr. Smith is a 52-year-old black male who was seen for an acute kidney injury. Initia chang, the feeling this may be related to myoglobinuric ATN was made. However, also a possibility of p rerenal azotemia was considered. He has received empiric volume repletion. Essentially was given is otonic bicarbonate, but this was subsequently changed to normal saline/lactated Ringer's. He is curr ently doing better. Renal function is improving over time. He has no new complaints today. He has no chest pain, shortness of breath. OBJECTIVE: VITAL SIGNS: Blood pressure 131/80, heart rate 66, respiratory rate 14, temperature 98.2, pulse ox 9 8%. GENERAL: Noted to be awake, alert, comfortable, not in distress. SKIN: Adequate turgor. HEENT: He has pinkish conjunctivae, anicteric sclerae. NECK: No neck mass, no carotid bruits, no JVD. CHEST: No deformities. LUNGS: Clear breath sounds. No wheezing, no crackles. HEART: Normal sinus rhythm. No murmurs, no gallops, no rubs. ABDOMEN: Globular, soft, nontender, no masses. EXTREMITIES: No edema, no deformities. MEDICATIONS: Medications of 12/04/2017 was reviewed. LABORATORY DATA: Laboratories of 12/04/2017; sodium 140, potassium 4.1, chloride 108, carbon dioxide 23, BUN 18, creatinine 1.96, calcium 8.3, magnesium 1.3. CK 685. ASSESSMENT AND PLAN: 1. Acute kidney injury - most likely hemodynamically mediated renal dysfunction. Much improved crea tinine with volume repletion. Continue current management. No changes to be made at the present lefty e. 2. Rhabdomyolysis, clinically improving. Most recent CPK 685. Overall, agree with current manageme nt.
--- NOTE | 2017-12-04 12:40 | PDOC.PN ---
- Subjective Encounter Start Date: 12/04/17 Encounter Start Time: 12:38 patient seen and examined. NAD - Objective Resuscitation Status: Resuscitation Status FULL:Full Resuscitation MAR Reviewed: Yes Vital Signs & Weight: Vital Signs (12 hours) Temp Pulse Resp BP Pulse Ox 12/04/17 11:13 98.5 F 67 14 129/83 97 12/04/17 07:55 98.2 F 66 14 98 12/04/17 07:20 98.2 F 66 14 131/80 98 12/04/17 04:00 98 F 61 20 125/84 96 Weight Weight 168 lb 14.4 oz I&O: 12/03/17 12/04/17 12/05/17 06:59 06:59 06:59 Intake Total 2637 4880 Output Total 3478 4525 Balance -838 355 Result Diagrams: 11/30/17 12:41 12/04/17 05:22 Additional Labs: Accuchecks 12/03/17 20:25 POC Glucose 117 H Dx/Plan (1) Acute on chronic kidney failure Code(s): N17.9 - ACUTE KIDNEY FAILURE, UNSPECIFIED; N18.9 - CHRONIC KIDNEY DISEASE, UNSPECIFIED Status: Acute Comment: likely pre-renal in etiology. Improving. Will continue IV hydration. nephrology workup/treatment in progress. (2) Suicidal behavior Code(s): R46.89 - OTHER SYMPTOMS AND SIGNS INVOLVING APPEARANCE AND BEHAVIOR Status: Acute Comment: Continue psych medications. Awaiting for patient to be medically optimized so that will consult [facility]. (3) Rhabdomyolysis Code(s): M62.82 - RHABDOMYOLYSIS Status: Acute Comment: Resolving (4) Cocaine abuse Code(s): F14.10 - COCAINE ABUSE, UNCOMPLICATED Status: Acute Comment: urinalysis positive for cocaine. Will continue supportive treatment. (5) Schizophrenia Code(s): F20.9 - SCHIZOPHRENIA, UNSPECIFIED Status: Acute Comment: continue current treatment. (6) Depression Code(s): F32.9 - MAJOR DEPRESSIVE DISORDER, SINGLE EPISODE, UNSPECIFIED Status : Acute Comment: Will continue current medication and have [facility] screen patient onces medically optimized. - Plan cont current plan of care * . Review of Systems - Review of Systems Constitutional: negative: fever, chills, sweats, weakness, malaise, other Eyes: negative: Pain, Vision Change, Conjunctivae Inflammation, Eyelid Inflammation, Redness, Other ENT: negative: Ear Pain, Ear Discharge, Nose Pain, Nose Discharge, Nose Congestion, Mouth Pain, Mouth Swelling, Throat Pain, Throat Swelling, Other Respiratory: negative: Cough, Dry, Shortness of Breath, Hemoptysis, SOB with Excertion, Pleuritic Pain, Sputum, Wheezing Cardiovascular: negative: chest pain, palpitations, orthopnea, paroxysmal nocturnal dyspnea, edema, light headedness, other Gastrointestinal: negative: Nausea, Vomiting, Abdominal Pain, Diarrhea, Constipation, Melena, Hematochezia, Other Genitourinary: negative: Dysuria, Frequency, Incontinence, Hematuria, Retention , Other Musculoskeletal: negative: Neck Pain, Shoulder Pain, Arm Pain, Back Pain, Hand Pain, Leg Pain, Foot Pain, Other Skin: negative: Rash, Lesions, Lebron, Bruising, Other Neurological: negative: Weakness, Numbness, Incoordination, Change in Speech, Confusion, Seizures, Other - Medications/Allergies Allergies/Adverse Reactions: Allergies Allergy/AdvReac Type Severity Reaction Status Date / Time No Known Drug Allergies Allergy Verified 11/09/17 12:56 Medications: Current Medications Acetaminophen (Tylenol) 650 mg PO Q4H PRN PRN Reason: Headache/Fever or Pain Aspirin (Ecotrin) 81 mg PO DAILY [facility] Last Admin: 12/04/17 09:10 Dose: 81 mg Benztropine Mesylate (Cogentin) 0.5 mg PO BID [facility] Last Admin: 12/04/17 09:09 Dose: 0.5 mg Buspirone HCl (Buspar) 15 mg PO BID [facility] Last Admin: 12/04/17 09:10 Dose: 15 mg Calcium Carbonate (Tums) 1,000 mg PO Q4H PRN PRN Reason: Heartburn or Indigestion Clonidine (Catapres) 0.1 mg PO Q4H PRN PRN Reason: Systolic BP > 180 Docusate Sodium (Colace) 100 mg PO BID [facility] Last Admin: 12/04/17 09:10 Dose: Not Given Famotidine (Pepcid) 20 mg PO QPM [facility] Last Admin: 12/03/17 21:24 Dose: 20 mg Fluoxetine HCl (Prozac) 40 mg PO DAILY [facility] Last Admin: 12/04/17 09:10 Dose: 40 mg Folic Acid (Folvite) 1 mg PO DAILY [facility] Last Admin: 12/04/17 09:10 Dose: 1 mg Haloperidol (Haldol) 5 mg PO BID [facility] Last Admin: 12/04/17 09:10 Dose: 5 mg Heparin Sodium (Porcine) (Heparin) 5,000 units SC BID [facility] Last Admin: 12/04/17 09:10 Dose: 5,000 units Lactated Ringer's (Lactated Ringer's) 1,000 mls @ 125 mls/hr IV .Q8H [facility] Last Admin: 12/04/17 05:57 Dose: 1,000 mls Magnesium Sulfate 2 gm/ Device 100 mls @ 100 mls/hr IVPB ONE [facility] Stop: 12/05/17 13:44 Multivitamins (Theragran) 1 tab PO DAILY [facility] Last Admin: 12/04/17 09:10 Dose: 1 tab Nitroglycerin (Nitrostat) 0.4 mg PO Q5MIN PRN PRN Reason: Chest Pain Senna (Senokot) 2 tab PO HSPRN PRN PRN Reason: Constipation Sodium Chloride (Flush - Normal Saline) 10 ml IVF Q12HR [facility] Last Admin: 12/04/17 09:11 Dose: 10 ml Sodium Chloride (Flush - Normal Saline) 10 ml IVF PRN PRN PRN Reason: Saline Flush Thiamine HCl (Thiamine) 100 mg PO DAILY [facility] Last Admin: 12/04/17 09:10 Dose: 100 mg Ziprasidone (Geodon) 10 mg IM Q2H PRN PRN Reason: Agitation
[2017-12-04] MEDS ORDERED: Magnesium Sulfate 2 GM, Admixture Fee 1 EACH in Sodium Chloride 0.9% 100 ML IVPB SCH (12:45)
[2017-12-04] MEDS ORDERED: Magnesium 2 GM/NS 0.9% 100 ML 2 GM in Premix Bag 1 BAG IVPB SCH (12:45)
[2017-12-04] MEDS: Acetaminophen 325 MG TAB PO PRN (21:14)
[2017-12-04] MEDS: Famotidine 20 MG TAB PO SCH (21:14)
[2017-12-05 06:11] LABS: Anion Gap 11 mmol/L (10-20); BUN (Urea Nitrogen) 18 mg/dL (8.4-25.7); CK (CPK) 378 U/L (30-200); Calc. Creatinine Clearance 47 mL/min (70-130); Calcium 8.6 mg/dL (7.8-10.44); Carbon Dioxide 24 mmol/L (22-29); Chloride 108 mmol/L (98-107); Estimated GFR-MDRD 43; Glucose 92 mg/dL (70-105); Magnesium 1.5 mg/dL (1.6-2.6); Potassium 4.2 mmol/L (3.5-5.1); Sodium 139 mmol/L (136-145)
[2017-12-05] MEDS: Lactated Ringer's 1,000 ML IV SCH ×2 (06:45→23:34)
[2017-12-05] MEDS: Benztropine 1 MG TAB PO SCH ×2 (08:01→19:39)
[2017-12-05] MEDS: Docusate 100 MG CAP PO SCH ×2 (08:01→19:40)
[2017-12-05] MEDS: busPIRone HCl 10 MG TAB PO SCH ×2 (08:02→19:39)
[2017-12-05] MEDS: Multivit, Therapeutic 1 TAB PO SCH (08:02)
[2017-12-05] MEDS: Haloperidol 5 MG TAB PO SCH ×2 (08:02→19:38)
[2017-12-05] MEDS: Heparin 5,000 UNITS/ML VIAL SC SCH ×2 (08:02→19:38)
[2017-12-05] MEDS: Aspirin 81 mg Enteric Coated Tablet PO SCH (08:02)
[2017-12-05] MEDS: Acetaminophen 325 MG TAB PO PRN (08:02)
[2017-12-05] MEDS: FLUoxetine HCl 20 MG CAP PO SCH (08:02)
[2017-12-05] MEDS: Folic Acid 1 MG TAB PO SCH (08:02)
--- NOTE | 2017-12-05 12:33 | PRG ---
DATE OF SERVICE: 12/05/2017 SUBJECTIVE: Mr. Smith is a 52-year-old black male who was seen for his acute kidney injury. His a cute kidney injury has hemodynamically mediated renal dysfunction. He has no new complaints today. Denies any chest pain, shortness of breath. He has been given volume repletion for the last several days with improvement of the renal function. He denies any chest pain or shortness of breath. No ac [place] events noted last night. PHYSICAL EXAMINATION: VITAL SIGNS: Blood pressure 136/86, heart rate 58, respiratory rate 16, temperature 98, pulse ox 97% . GENERAL: Noted to be awake, alert, comfortable, flat affect. SKIN: Adequate turgor. HEENT: He has pinkish conjunctivae, anicteric sclerae. NECK: No neck mass, no carotid bruits, no JVD. CHEST: No deformities. LUNGS: Clear breath sounds. No wheezing, no crackles. HEART: Normal sinus rhythm. No murmur, no gallops or rubs. ABDOMEN: Globular, soft, nontender, no masses. EXTREMITIES: No edema, no deformities. MEDICATIONS: 12/05/2017 - reviewed. LABORATORY DATA: White count 10.8, hemoglobin 10.7, hematocrit 33.2. Sodium 139, potassium 4.2, chl oride 108, carbon dioxide 24, BUN 18, creatinine 1.98, glucose 92, calcium 8.6, magnesium 1.5, CK 378 . ASSESSMENT AND PLAN: 1. Rhabdomyolysis, clinically improving. Continue supportive care. 2. Acute kidney injury - hemodynamically mediated renal dysfunction. Renal function is remaining st able. His creatinine seems to be plateauing at 1.98. The possibility that he may have intrinsic oedssa al problem remains. Continue supportive care. Continue IV hydration. No changes will be made with his current medications. No indication for any dialytic intervention. Recheck base met in a.m.
--- NOTE | 2017-12-05 16:53 | PDOC.PN ---
- Subjective Encounter Start Date: 12/05/17 Encounter Start Time: 16:53 Patient seen and examined - Objective Resuscitation Status: Resuscitation Status FULL:Full Resuscitation MAR Reviewed: Yes Vital Signs & Weight: Vital Signs (12 hours) Temp Pulse Resp BP Pulse Ox 12/05/17 16:00 98.3 F 67 14 140/96 H 98 12/05/17 12:00 97.9 F 65 14 121/81 96 12/05/17 07:14 98 F 58 L 16 95 12/05/17 07:07 98 F 58 L 16 136/86 97 Weight Weight 168 lb 14.4 oz I&O: 12/04/17 12/05/17 12/06/17 06:59 06:59 06:59 Intake Total 4880 5480 Output Total 4525 2900 Balance 355 2580 Result Diagrams: 11/30/17 12:41 12/05/17 05:31 Phys Exam - Physical Examination Constitutional: NAD HEENT: PERRLA, moist MMs Neck: no JVD Respiratory: no wheezing, no rales Cardiovascular: RRR, no significant murmur, no rub Gastrointestinal: soft, non-tender Musculoskeletal: no edema Neurological: non-focal, normal sensation, moves all 4 limbs Psychiatric: normal affect, A&O x 3 Skin: no rash Dx/Plan (1) Acute on chronic kidney failure Code(s): N17.9 - ACUTE KIDNEY FAILURE, UNSPECIFIED; N18.9 - CHRONIC KIDNEY DISEASE, UNSPECIFIED Status: Acute Comment: likely pre-renal in etiology. Improving. Will continue IV hydration. nephrology workup/treatment in progress. (2) Suicidal behavior Code(s): R46.89 - OTHER SYMPTOMS AND SIGNS INVOLVING APPEARANCE AND BEHAVIOR Status: Acute Comment: Continue psych medications. Awaiting for patient to be medically optimized so that will consult [facility]. (3) Rhabdomyolysis Code(s): M62.82 - RHABDOMYOLYSIS Status: Acute Comment: Resolving (4) Cocaine abuse Code(s): F14.10 - COCAINE ABUSE, UNCOMPLICATED Status: Acute Comment: urinalysis positive for cocaine. Will continue supportive treatment. (5) Schizophrenia Code(s): F20.9 - SCHIZOPHRENIA, UNSPECIFIED Status: Acute Comment: continue current treatment. (6) Depression Code(s): F32.9 - MAJOR DEPRESSIVE DISORDER, SINGLE EPISODE, UNSPECIFIED Status : Acute Comment: Will continue current medication and have [facility] screen patient onces medically optimized. - Plan cont current plan of care * . Review of Systems - Review of Systems Constitutional: negative: fever, chills, sweats, weakness, malaise, other Eyes: negative: Pain, Vision Change, Conjunctivae Inflammation, Eyelid Inflammation, Redness, Other ENT: negative: Ear Pain, Ear Discharge, Nose Pain, Nose Discharge, Nose Congestion, Mouth Pain, Mouth Swelling, Throat Pain, Throat Swelling, Other Respiratory: negative: Cough, Dry, Shortness of Breath, Hemoptysis, SOB with Excertion, Pleuritic Pain, Sputum, Wheezing Cardiovascular: negative: chest pain, palpitations, orthopnea, paroxysmal nocturnal dyspnea, edema, light headedness, other Gastrointestinal: negative: Nausea, Vomiting, Abdominal Pain, Diarrhea, Constipation, Melena, Hematochezia, Other Genitourinary: negative: Dysuria, Frequency, Incontinence, Hematuria, Retention , Other Musculoskeletal: negative: Neck Pain, Shoulder Pain, Arm Pain, Back Pain, Hand Pain, Leg Pain, Foot Pain, Other Skin: negative: Rash, Lesions, Lebron, Bruising, Other Neurological: negative: Weakness, Numbness, Incoordination, Change in Speech, Confusion, Seizures, Other - Medications/Allergies Allergies/Adverse Reactions: Allergies Allergy/AdvReac Type Severity Reaction Status Date / Time No Known Drug Allergies Allergy Verified 11/09/17 12:56 Medications: Current Medications Acetaminophen (Tylenol) 650 mg PO Q4H PRN PRN Reason: Headache/Fever or Pain Last Admin: 12/05/17 08:02 Dose: 650 mg Aspirin (Ecotrin) 81 mg PO DAILY [facility] Last Admin: 12/05/17 08:02 Dose: 81 mg Benztropine Mesylate (Cogentin) 0.5 mg PO BID [facility] Last Admin: 12/05/17 08:01 Dose: 0.5 mg Buspirone HCl (Buspar) 15 mg PO BID [facility] Last Admin: 12/05/17 08:02 Dose: 15 mg Calcium Carbonate (Tums) 1,000 mg PO Q4H PRN PRN Reason: Heartburn or Indigestion Clonidine (Catapres) 0.1 mg PO Q4H PRN PRN Reason: Systolic BP > 180 Docusate Sodium (Colace) 100 mg PO BID [facility] Last Admin: 12/05/17 08:01 Dose: Not Given Famotidine (Pepcid) 20 mg PO QPM [facility] Last Admin: 12/04/17 21:14 Dose: 20 mg Fluoxetine HCl (Prozac) 40 mg PO DAILY [facility] Last Admin: 12/05/17 08:02 Dose: 40 mg Folic Acid (Folvite) 1 mg PO DAILY [facility] Last Admin: 12/05/17 08:02 Dose: 1 mg Haloperidol (Haldol) 5 mg PO BID [facility] Last Admin: 12/05/17 08:02 Dose: 5 mg Heparin Sodium (Porcine) (Heparin) 5,000 units SC BID [facility] Last Admin: 12/05/17 08:02 Dose: 5,000 units Lactated Ringer's (Lactated Ringer's) 1,000 mls @ 125 mls/hr IV .Q8H [facility] Last Admin: 12/05/17 06:45 Dose: 1,000 mls Magnesium Sulfate 2 gm/ Device 100 mls @ 100 mls/hr IVPB NOW [facility] Stop: 12/05/17 19:00 Multivitamins (Theragran) 1 tab PO DAILY [facility] Last Admin: 12/05/17 08:02 Dose: 1 tab Nitroglycerin (Nitrostat) 0.4 mg PO Q5MIN PRN PRN Reason: Chest Pain Senna (Senokot) 2 tab PO HSPRN PRN PRN Reason: Constipation Sodium Chloride (Flush - Normal Saline) 10 ml IVF Q12HR [facility] Last Admin: 12/05/17 08:03 Dose: 10 ml Sodium Chloride (Flush - Normal Saline) 10 ml IVF PRN PRN PRN Reason: Saline Flush Thiamine HCl (Thiamine) 100 mg PO DAILY [facility] Last Admin: 12/05/17 08:02 Dose: 100 mg Ziprasidone (Geodon) 10 mg IM Q2H PRN PRN Reason: Agitation
[2017-12-05] MEDS ORDERED: Magnesium 2 GM/NS 0.9% 100 ML 2 GM in Premix Bag 1 BAG IVPB SCH (17:00)
[2017-12-05] MEDS ORDERED: Magnesium Sulfate 2 GM in Sodium Chloride 0.9% 100 ML IVPB SCH (18:30)
[2017-12-05] MEDS: Famotidine 20 MG TAB PO SCH (19:39)
[2017-12-06 06:31] LABS: Anion Gap 12 mmol/L (10-20); BUN (Urea Nitrogen) 17 mg/dL (8.4-25.7); CK (CPK) 233 U/L (30-200); Calc. Creatinine Clearance 50 mL/min (70-130); Calcium 8.7 mg/dL (7.8-10.44); Carbon Dioxide 24 mmol/L (22-29); Chloride 108 mmol/L (98-107); Estimated GFR-MDRD 46; Glucose 83 mg/dL (70-105); Magnesium 1.7 mg/dL (1.6-2.6); Potassium 4.5 mmol/L (3.5-5.1); Sodium 139 mmol/L (136-145)
[2017-12-06] MEDS: Lactated Ringer's 1,000 ML IV SCH ×3 (07:00→15:42)
[2017-12-06] MEDS: Haloperidol 5 MG TAB PO SCH (09:38)
[2017-12-06] MEDS: Benztropine 1 MG TAB PO SCH ×2 (09:38→21:37)
[2017-12-06] MEDS: Aspirin 81 mg Enteric Coated Tablet PO SCH (09:39)
[2017-12-06] MEDS: busPIRone HCl 10 MG TAB PO SCH ×2 (09:39→21:36)
[2017-12-06] MEDS: FLUoxetine HCl 20 MG CAP PO SCH (09:40)
[2017-12-06] MEDS: Multivit, Therapeutic 1 TAB PO SCH (09:40)
[2017-12-06] MEDS: Folic Acid 1 MG TAB PO SCH (09:41)
[2017-12-06] MEDS: Docusate 100 MG CAP PO SCH ×2 (09:41→21:37)
[2017-12-06] MEDS: Heparin 5,000 UNITS/ML VIAL SC SCH ×3 (09:48→21:38)
--- NOTE | 2017-12-06 11:29 | PRG ---
DATE OF SERVICE: 12/06/2017 SERVICE: Renal Medicine. SUBJECTIVE: Mr. Smith is a 52-year-old black male who was seen for an acute kidney injury secondar y to a presumptive hemodynamically mediated renal dysfunction. Renal function does improve with IV h ydration. However, the creatinine plateaued at about 1.8-1.9 suggesting he may have underlying intri nsic chronic renal failure. He has also a history of bipolar disorder and schizophrenia while awaiti ng input from [facility]. No new complaints today, no chest pain or shortness of breath. PHYSICAL EXAMINATION: VITAL SIGNS: Blood pressure is 105/54, heart rate 66, respiratory rate 16, temperature 97.3, pulse o x 96%. GENERAL: Noted to be awake, supine, comfortable, not in overt distress SKIN: Adequate turgor. HEENT: He has pinkish conjunctivae, anicteric sclerae. NECK: No neck mass, no carotid bruits, no JVD. CHEST: No deformities. LUNGS: Clear breath sounds. HEART: Normal sinus rhythm. No murmur, no gallops, no rubs. ABDOMEN: Globular, soft, nontender, no masses. EXTREMITIES: No edema, no deformities. MEDICATIONS: Of 12/06/2017 was reviewed. LABORATORY DATA: Of 12/06/2017, sodium 139, potassium 4.5, chloride 108, carbon dioxide 24, BUN 17, creatinine 1.88, GFR 46 mL per minute. Calcium 8.7, magnesium was 1.7. CK is 233. On 11/30/2017, w loyd count 10.8, hemoglobin 10.7. ASSESSMENT AND PLAN: 1. Acute kidney injury - superimposed prerenal azotemia on top of possible chronic renal failure. M uch improved with IV hydration. If creatinine will still be about the same tomorrow, consider discon tinuing the IV fluid. 2. Chronic renal failure - patient may have underlying chronic renal problem. The exact etiology re aishwarya undetermined. Continue supportive care. 3. Bipolar disorder/schizophrenia, currently on his psychiatric medications. Awaiting [facility] input re garding to suicidal ideation.
[2017-12-06] MEDS: Famotidine 20 MG TAB PO SCH (21:37)
--- NOTE | 2017-12-06 22:44 | PDOC.PN ---
- Subjective Encounter Start Date: 12/06/17 Encounter Start Time: 12:00 Patient seen and examined for RAMONA. No new complaints. No overnight events - Objective Resuscitation Status: Resuscitation Status FULL:Full Resuscitation MAR Reviewed: Yes Vital Signs & Weight: Vital Signs (12 hours) Temp Pulse Resp BP Pulse Ox 12/06/17 20:00 98.1 F 66 18 136/94 H 97 12/06/17 17:38 97.7 F 60 18 149/93 H 96 12/06/17 15:34 97.9 F 81 16 168/100 H 95 12/06/17 15:26 97.9 F 81 16 95 12/06/17 12:00 96.4 F L 58 L 16 131/84 100 Weight Weight 168 lb 14.4 oz I&O: 12/05/17 12/06/17 12/07/17 06:59 06:59 06:59 Intake Total 5480 3480 480 Output Total 2900 2240 Balance 2580 1240 480 Result Diagrams: 11/30/17 12:41 12/06/17 05:24 Phys Exam - Physical Examination Constitutional: NAD Respiratory: no wheezing, no rhonchi Cardiovascular: RRR, no rub Gastrointestinal: soft, non-tender, positive bowel sounds Musculoskeletal: no edema Neurological: moves all 4 limbs Dx/Plan - Plan DVT proph w/SCDs IMPRESSION: 1. Acute kidney injury with rhabdomyolysis/Dehydration. 2. Suicidal ideation. 3. Chronic anemia with recent EGD and colonoscopy. 4. Polysubstance abuse. The patient is positive for cocaine. 5. Tobacco dependence. 6. Abnormal liver function tests, probably secondary to dehydration. 7. Metabolic acidosis. 8. Starvation ketosis. 9. Anxiety, depression, bipolar disorder, and schizophrenia. 10. Elevated troponins in the indeterminate range probably secondary to cocaine abuse. PLAN: Cont IVF AM labs Cont current meds as below Transfer to medical - No significant arrhythmias on tele Review of Systems - Review of Systems Respiratory: negative: Cough, Dry, Shortness of Breath, Hemoptysis, SOB with Excertion, Pleuritic Pain, Sputum, Wheezing Cardiovascular: negative: chest pain, palpitations, orthopnea, paroxysmal nocturnal dyspnea, edema, light headedness, other - Medications/Allergies Allergies/Adverse Reactions: Allergies Allergy/AdvReac Type Severity Reaction Status Date / Time No Known Drug Allergies Allergy Verified 11/09/17 12:56 Medications: Current Medications Acetaminophen (Tylenol) 650 mg PO Q4H PRN PRN Reason: Headache/Fever or Pain Last Admin: 12/05/17 08:02 Dose: 650 mg Aspirin (Ecotrin) 81 mg PO DAILY [facility] Last Admin: 12/06/17 09:39 Dose: 81 mg Benztropine Mesylate (Cogentin) 0.5 mg PO BID [facility] Last Admin: 12/06/17 21:37 Dose: 0.5 mg Buspirone HCl (Buspar) 15 mg PO BID [facility] Last Admin: 12/06/17 21:36 Dose: 15 mg Calcium Carbonate (Tums) 1,000 mg PO Q4H PRN PRN Reason: Heartburn or Indigestion Clonidine (Catapres) 0.1 mg PO Q4H PRN PRN Reason: Systolic BP > 180 Docusate Sodium (Colace) 100 mg PO BID [facility] Last Admin: 12/06/17 21:37 Dose: Not Given Famotidine (Pepcid) 20 mg PO QPM [facility] Last Admin: 12/06/17 21:37 Dose: Not Given Fluoxetine HCl (Prozac) 40 mg PO DAILY [facility] Last Admin: 12/06/17 09:40 Dose: 40 mg Folic Acid (Folvite) 1 mg PO DAILY [facility] Last Admin: 12/06/17 09:41 Dose: 1 mg Heparin Sodium (Porcine) (Heparin) 5,000 units SC BID [facility] Last Admin: 12/06/17 21:38 Dose: Not Given Lactated Ringer's (Lactated Ringer's) 1,000 mls @ 125 mls/hr IV .Q8H [facility] Last Admin: 12/06/17 15:42 Dose: 1,000 mls Multivitamins (Theragran) 1 tab PO DAILY [facility] Last Admin: 12/06/17 09:40 Dose: 1 tab Nitroglycerin (Nitrostat) 0.4 mg PO Q5MIN PRN PRN Reason: Chest Pain Senna (Senokot) 2 tab PO HSPRN PRN PRN Reason: Constipation Sodium Chloride (Flush - Normal Saline) 10 ml IVF Q12HR [facility] Last Admin: 12/06/17 21:38 Dose: Not Given Sodium Chloride (Flush - Normal Saline) 10 ml IVF PRN PRN PRN Reason: Saline Flush Thiamine HCl (Thiamine) 100 mg PO DAILY [facility] Last Admin: 12/06/17 09:40 Dose: 100 mg Ziprasidone (Geodon) 10 mg IM Q2H PRN PRN Reason: Agitation
[2017-12-07] MEDS: Lactated Ringer's 1,000 ML IV SCH ×3 (01:32→17:08)
[2017-12-07 05:20] LABS: Anion Gap 13 mmol/L (10-20); BUN (Urea Nitrogen) 16 mg/dL (8.4-25.7); Calc. Creatinine Clearance 48 mL/min (70-130); Calcium 8.6 mg/dL (7.8-10.44); Carbon Dioxide 22 mmol/L (22-29); Chloride 109 mmol/L (98-107); Estimated GFR-MDRD 43; Glucose 88 mg/dL (70-105); Magnesium 1.4 mg/dL (1.6-2.6); Potassium 4.5 mmol/L (3.5-5.1); Sodium 139 mmol/L (136-145)
[2017-12-07] MEDS: Heparin 5,000 UNITS/ML VIAL SC SCH ×2 (08:09→21:58)
[2017-12-07] MEDS: Benztropine 1 MG TAB PO SCH ×2 (08:10→21:58)
[2017-12-07] MEDS: busPIRone HCl 10 MG TAB PO SCH ×2 (08:11→21:58)
[2017-12-07] MEDS: FLUoxetine HCl 20 MG CAP PO SCH (08:11)
[2017-12-07] MEDS: Multivit, Therapeutic 1 TAB PO SCH (08:12)
[2017-12-07] MEDS: Folic Acid 1 MG TAB PO SCH (08:12)
[2017-12-07] MEDS: Aspirin 81 mg Enteric Coated Tablet PO SCH (08:12)
[2017-12-07] MEDS: Docusate 100 MG CAP PO SCH ×2 (08:13→21:58)
[2017-12-07] MEDS ORDERED: Magnesium Sulfate 2 GM in Sodium Chloride 0.9% 100 ML IVPB SCH (10:00)
[2017-12-07] MEDS ORDERED: Haloperidol 5 MG TAB PO SCH (11:15)
[2017-12-07] MEDS: Famotidine 20 MG TAB PO SCH (21:58)
[2017-12-07] MEDS: Haloperidol 5 MG TAB PO SCH (21:58)
[2017-12-07] MEDS: Acetaminophen 325 MG TAB PO PRN (22:12)
--- NOTE | 2017-12-07 22:39 | PDOC.PN ---
- Subjective Encounter Start Date: 12/07/17 Encounter Start Time: 14:30 Patient seen and examined for SI. Hearing voices. No new complaints. No overnight events - Objective Resuscitation Status: Resuscitation Status FULL:Full Resuscitation MAR Reviewed: Yes Vital Signs & Weight: Vital Signs (12 hours) Temp Pulse Resp BP Pulse Ox 12/07/17 20:00 98.2 F 64 16 135/90 95 12/07/17 16:00 97.6 F 109 H 70 H 146/89 H 96 12/07/17 12:15 149/80 H 12/07/17 12:05 97.8 F 64 16 156/104 H 100 Weight Weight 168 lb 14.4 oz I&O: 12/06/17 12/07/17 12/08/17 06:59 06:59 06:59 Intake Total 3480 480 Output Total 2240 Balance 1240 480 Result Diagrams: 12/08/17 04:17 12/07/17 04:45 Phys Exam - Physical Examination Constitutional: NAD Respiratory: no wheezing, no rhonchi Cardiovascular: RRR, no rub Gastrointestinal: soft, positive bowel sounds Musculoskeletal: no edema Neurological: moves all 4 limbs Dx/Plan - Plan DVT proph w/SCDs IMPRESSION: 1. Acute kidney injury with rhabdomyolysis/Dehydration. improved 2. Suicidal ideation. 3. Chronic anemia with recent EGD and colonoscopy. 4. Polysubstance abuse - Cocaine positive 5. Tobacco dependence. 6. Abnormal liver function tests, probably secondary to dehydration. improving 7. Metabolic acidosis. 8. Starvation ketosis. 9. Anxiety, depression, bipolar disorder, and schizophrenia. 10. Elevated troponins in the indeterminate range probably secondary to cocaine abuse. PLAN: DC IVF Start Haldol PO - Patient takes PO Haldol at home - dose ? I d/w [facility] - Patient to be placed on [facility] waitlist Cont current meds as below Review of Systems - Review of Systems Respiratory: negative: Cough, Dry, Shortness of Breath, Hemoptysis, SOB with Excertion, Pleuritic Pain, Sputum, Wheezing Cardiovascular: negative: chest pain, palpitations, orthopnea, paroxysmal nocturnal dyspnea, edema, light headedness, other - Medications/Allergies Allergies/Adverse Reactions: Allergies Allergy/AdvReac Type Severity Reaction Status Date / Time No Known Drug Allergies Allergy Verified 11/09/17 12:56 Medications: Current Medications Acetaminophen (Tylenol) 650 mg PO Q4H PRN PRN Reason: Headache/Fever or Pain Last Admin: 12/07/17 22:12 Dose: 650 mg Aspirin (Ecotrin) 81 mg PO DAILY [facility] Last Admin: 12/07/17 08:12 Dose: 81 mg Benztropine Mesylate (Cogentin) 0.5 mg PO BID [facility] Last Admin: 12/07/17 21:58 Dose: 0.5 mg Buspirone HCl (Buspar) 15 mg PO BID [facility] Last Admin: 12/07/17 21:58 Dose: 15 mg Calcium Carbonate (Tums) 1,000 mg PO Q4H PRN PRN Reason: Heartburn or Indigestion Clonidine (Catapres) 0.1 mg PO Q4H PRN PRN Reason: Systolic BP > 180 Docusate Sodium (Colace) 100 mg PO BID [facility] Last Admin: 12/07/17 21:58 Dose: Not Given Famotidine (Pepcid) 20 mg PO QPM [facility] Last Admin: 12/07/17 21:58 Dose: 20 mg Fluoxetine HCl (Prozac) 40 mg PO DAILY [facility] Last Admin: 12/07/17 08:11 Dose: 40 mg Folic Acid (Folvite) 1 mg PO DAILY [facility] Last Admin: 12/07/17 08:12 Dose: 1 mg Haloperidol (Haldol) 5 mg PO BID [facility] Last Admin: 12/07/17 21:58 Dose: 5 mg Heparin Sodium (Porcine) (Heparin) 5,000 units SC BID [facility] Last Admin: 12/07/17 21:58 Dose: Not Given Multivitamins (Theragran) 1 tab PO DAILY [facility] Last Admin: 12/07/17 08:12 Dose: 1 tab Nitroglycerin (Nitrostat) 0.4 mg PO Q5MIN PRN PRN Reason: Chest Pain Senna (Senokot) 2 tab PO HSPRN PRN PRN Reason: Constipation Sodium Chloride (Flush - Normal Saline) 10 ml IVF Q12HR [facility] Last Admin: 12/07/17 21:59 Dose: 10 ml Sodium Chloride (Flush - Normal Saline) 10 ml IVF PRN PRN PRN Reason: Saline Flush Thiamine HCl (Thiamine) 100 mg PO DAILY [facility] Last Admin: 12/07/17 08:12 Dose: 100 mg Ziprasidone (Geodon) 10 mg IM Q2H PRN PRN Reason: Agitation
[2017-12-08 05:13] LABS: Hemoglobin 8.4 g/dL (14.0-18.0); Platelet Count 330 thou/uL (130-400)
[2017-12-08] MEDS: Docusate 100 MG CAP PO SCH ×2 (08:43→20:41)
[2017-12-08] MEDS: Benztropine 1 MG TAB PO SCH ×2 (08:44→20:41)
[2017-12-08] MEDS: Folic Acid 1 MG TAB PO SCH (08:45)
[2017-12-08] MEDS: busPIRone HCl 10 MG TAB PO SCH ×2 (08:45→20:40)
[2017-12-08] MEDS: Multivit, Therapeutic 1 TAB PO SCH (08:45)
[2017-12-08] MEDS: Aspirin 81 mg Enteric Coated Tablet PO SCH (08:45)
[2017-12-08] MEDS: Haloperidol 5 MG TAB PO SCH ×2 (08:47→20:41)
[2017-12-08] MEDS: FLUoxetine HCl 20 MG CAP PO SCH (08:47)
[2017-12-08] MEDS: Heparin 5,000 UNITS/ML VIAL SC SCH ×2 (08:48→20:43)
--- NOTE | 2017-12-08 09:31 | PRG ---
DATE OF SERVICE: 12/08/2017 SUBJECTIVE: Mr. Smith is a 52-year-old black male with history of bipolar disorder/schizophrenia a nd was seen by the Renal Service for an acute kidney injury. He had an acute renal failure from a he modynamic mediated renal dysfunction on top of a presumptive chronic renal failure. Renal function h as stabilized. My last creatinine was noted at 1.9 mg %. No other complaints today. We are awaitin g placement for him. No complaints of chest pain or shortness of breath. PHYSICAL EXAMINATION: VITAL SIGNS: Blood pressure is 128/82, heart rate 65, respiratory rate 14, temperature 98.2, pulse o x 92%. GENERAL: Awake, alert, sitting comfortable, flat affect, not in distress. SKIN: Adequate turgor. HEENT: Slightly pale conjunctivae, anicteric sclerae. NECK: No neck mass, no carotid bruits, no JVD. CHEST: No deformities. LUNGS: Clear breath sounds. No wheezing, no crackles. HEART: Normal sinus rhythm. No murmur, no gallops or rubs. ABDOMEN: Globular, soft, nontender, no masses. EXTREMITIES: No edema, no deformities. MEDICATIONS: 12/08/2017 - Reviewed. LABORATORY DATA: 12/08/2017 - Hemoglobin was 8.4. 12/07/2017 - Sodium was 139, potassium 4.5, chloride 109, carbon dioxide 22, BUN 16, creatinine 1.97, glucose 88. 12/08/2017 - Magnesium 1.6. ASSESSMENT AND PLAN: 1. Acute kidney injury - superimposed prerenal azotemia, much improved renal function. 2. Chronic renal failure - unclear etiology. His renal ultrasound and urinalysis was relatively samuel ign. Our plan is simply to observe and there is no indication for any dialytic intervention. 3. Anemia. Continue to observe, p.r.n. blood transfusion. 4. Schizophrenia - the patient on his antipsychotic meds. He still hears voices. Recheck base met in a.m.
[2017-12-08] MEDS: Famotidine 20 MG TAB PO SCH (20:40)
--- NOTE | 2017-12-08 23:11 | PDOC.PN ---
- Subjective Encounter Start Date: 12/08/17 Encounter Start Time: 12:45 Patient seen and examined for SI. No new complaints. No overnight events - Objective Resuscitation Status: Resuscitation Status FULL:Full Resuscitation MAR Reviewed: Yes Vital Signs & Weight: Vital Signs (12 hours) Temp Pulse Resp BP Pulse Ox 12/08/17 20:00 98.6 F 70 18 126/85 95 Weight Weight 168 lb 14.4 oz I&O: 12/07/17 12/08/17 12/09/17 06:59 06:59 06:59 Intake Total 480 Balance 480 Result Diagrams: 12/08/17 04:17 12/09/17 04:05 Phys Exam - Physical Examination Constitutional: NAD Respiratory: no wheezing, no rhonchi Cardiovascular: RRR, no rub Gastrointestinal: soft, non-tender, no distention, positive bowel sounds Musculoskeletal: no edema Neurological: moves all 4 limbs Dx/Plan - Plan DVT proph w/heparin, DVT proph w/SCDs IMPRESSION: 1. Acute kidney injury with rhabdomyolysis/Dehydration. improved 2. Suicidal ideation. 3. Chronic anemia with recent EGD and colonoscopy. 4. Polysubstance abuse - Cocaine positive 5. Tobacco dependence. 6. Abnormal liver function tests, probably secondary to dehydration. improving 7. Metabolic acidosis. 8. Starvation ketosis. 9. Anxiety, depression, bipolar disorder, and schizophrenia. 10. Elevated troponins in the indeterminate range probably secondary to cocaine abuse. PLAN: Stable for dc to [facility] when bed available Cont current meds as below Review of Systems - Review of Systems Respiratory: negative: Cough, Dry, Shortness of Breath, Hemoptysis, SOB with Excertion, Pleuritic Pain, Sputum, Wheezing Cardiovascular: negative: chest pain, palpitations, orthopnea, paroxysmal nocturnal dyspnea, edema, light headedness, other - Medications/Allergies Allergies/Adverse Reactions: Allergies Allergy/AdvReac Type Severity Reaction Status Date / Time No Known Drug Allergies Allergy Verified 11/09/17 12:56 Medications: Current Medications Acetaminophen (Tylenol) 650 mg PO Q4H PRN PRN Reason: Headache/Fever or Pain Last Admin: 12/07/17 22:12 Dose: 650 mg Aspirin (Ecotrin) 81 mg PO DAILY [facility] Last Admin: 12/08/17 08:45 Dose: 81 mg Benztropine Mesylate (Cogentin) 0.5 mg PO BID [facility] Last Admin: 12/08/17 20:41 Dose: 0.5 mg Buspirone HCl (Buspar) 15 mg PO BID [facility] Last Admin: 12/08/17 20:40 Dose: 15 mg Calcium Carbonate (Tums) 1,000 mg PO Q4H PRN PRN Reason: Heartburn or Indigestion Clonidine (Catapres) 0.1 mg PO Q4H PRN PRN Reason: Systolic BP > 180 Docusate Sodium (Colace) 100 mg PO BID [facility] Last Admin: 12/08/17 20:41 Dose: Not Given Famotidine (Pepcid) 20 mg PO QPM [facility] Last Admin: 12/08/17 20:40 Dose: 20 mg Fluoxetine HCl (Prozac) 40 mg PO DAILY [facility] Last Admin: 12/08/17 08:47 Dose: 40 mg Folic Acid (Folvite) 1 mg PO DAILY [facility] Last Admin: 12/08/17 08:45 Dose: 1 mg Haloperidol (Haldol) 5 mg PO BID [facility] Last Admin: 12/08/17 20:41 Dose: 5 mg Heparin Sodium (Porcine) (Heparin) 5,000 units SC BID [facility] Last Admin: 12/08/17 20:43 Dose: 5,000 units Multivitamins (Theragran) 1 tab PO DAILY [facility] Last Admin: 12/08/17 08:45 Dose: 1 tab Nitroglycerin (Nitrostat) 0.4 mg PO Q5MIN PRN PRN Reason: Chest Pain Senna (Senokot) 2 tab PO HSPRN PRN PRN Reason: Constipation Sodium Chloride (Flush - Normal Saline) 10 ml IVF Q12HR [facility] Last Admin: 12/08/17 20:46 Dose: 10 ml Sodium Chloride (Flush - Normal Saline) 10 ml IVF PRN PRN PRN Reason: Saline Flush Thiamine HCl (Thiamine) 100 mg PO DAILY [facility] Last Admin: 12/08/17 08:45 Dose: 100 mg
[2017-12-09 06:03] LABS: Anion Gap 11 mmol/L (10-20); BUN (Urea Nitrogen) 17 mg/dL (8.4-25.7); Calc. Creatinine Clearance 47 mL/min (70-130); Calcium 8.9 mg/dL (7.8-10.44); Carbon Dioxide 22 mmol/L (22-29); Chloride 108 mmol/L (98-107); Estimated GFR-MDRD 42; Glucose 83 mg/dL (70-105); Magnesium 1.6 mg/dL (1.6-2.6); Potassium 4.4 mmol/L (3.5-5.1); Sodium 137 mmol/L (136-145)
[2017-12-09] MEDS: Acetaminophen 325 MG TAB PO PRN (09:36)
[2017-12-09] MEDS: FLUoxetine HCl 20 MG CAP PO SCH (09:37)
[2017-12-09] MEDS: Aspirin 81 mg Enteric Coated Tablet PO SCH (09:38)
[2017-12-09] MEDS: Benztropine 1 MG TAB PO SCH ×2 (09:38→21:59)
[2017-12-09] MEDS: busPIRone HCl 10 MG TAB PO SCH ×2 (09:38→21:59)
[2017-12-09] MEDS: Haloperidol 5 MG TAB PO SCH ×2 (09:39→21:59)
[2017-12-09] MEDS: Multivit, Therapeutic 1 TAB PO SCH (09:39)
[2017-12-09] MEDS: Folic Acid 1 MG TAB PO SCH (09:39)
[2017-12-09] MEDS: Heparin 5,000 UNITS/ML VIAL SC SCH ×2 (09:39→22:00)
[2017-12-09] MEDS: Docusate 100 MG CAP PO SCH ×2 (09:39→22:00)
--- NOTE | 2017-12-09 09:49 | PRG ---
DATE OF SERVICE: 12/09/2017 SERVICE: Renal Medicine. SUBJECTIVE: Mr. Smith is a 52-year-old black male with history of bipolar disorder/ schizophrenia and was seen by the Renal Service for his acute kidney injury on top of his chronic renal failure. W e felt that the patient was simply volume depleted. He improved with volume repletion. No new compl aints today. No complaints of chest pain or shortness of breath. OBJECTIVE: VITAL SIGNS: Blood pressure is 127/85, heart rate 72, respiratory rate 18, temperature 97.9, pulse o x 96%. GENERAL: Awake, sitting comfortable, flat affect, not in distress. SKIN: Adequate turgor. HEENT: Slightly pale conjunctivae, anicteric sclerae. NECK: No neck mass, no carotid bruits, no JVD. CHEST: No deformities. LUNGS: Clear breath sounds. HEART: Normal sinus rhythm. No murmur, gallops or rubs. ABDOMEN: Globular, soft, nontender, no masses. EXTREMITIES: No edema, no deformities. MEDICATIONS: Of 12/09/2017 was reviewed. LABORATORY DATA: Of 12/09/2017, sodium 137, potassium 4.4, chloride 108, carbon dioxide 22, BUN 17, creatinine 2.01, GFR 42 mL per minute, glucose 83, calcium 8.9, magnesium 1.6. ASSESSMENT AND PLAN: 1. Acute kidney injury on top of his chronic renal failure, superimposed prerenal azotemia and much improved with volume repletion. His renal function is most likely at baseline. Relatively stable re nal function, no indication for any dialytic intervention. The exact etiology of his chronic renal f ailure remains undetermined. 2. Bipolar disorder/schizophrenia. Continue supportive care - awaiting placement for the patient. We will recheck base met and CBC in a.m.
--- NOTE | 2017-12-09 21:22 | PDOC.PN ---
- Subjective Encounter Start Date: 12/09/17 Encounter Start Time: 13:00 Patient seen and examined for SI. No new complaints. No overnight events - Objective Resuscitation Status: Resuscitation Status FULL:Full Resuscitation MAR Reviewed: Yes Vital Signs & Weight: Vital Signs (12 hours) Temp Pulse Resp BP BP Pulse Ox 12/09/17 20:38 98.2 F 62 16 129/69 97 12/09/17 16:00 97.9 F 76 18 121/89 97 12/09/17 11:07 98.0 F 70 18 131/84 95 Weight Weight 168 lb 14.4 oz Result Diagrams: 12/10/17 04:15 12/10/17 04:15 Phys Exam - Physical Examination Constitutional: NAD Respiratory: no wheezing, no rhonchi Cardiovascular: RRR, no rub Gastrointestinal: soft, positive bowel sounds Musculoskeletal: no edema Dx/Plan - Plan DVT proph w/SCDs IMPRESSION: 1. Acute kidney injury with rhabdomyolysis/Dehydration. improved 2. Suicidal ideation. 3. Chronic anemia with recent EGD and colonoscopy. 4. Polysubstance abuse - Cocaine positive 5. Tobacco dependence. 6. Abnormal liver function tests, probably secondary to dehydration. improving 7. Metabolic acidosis. 8. Starvation ketosis. 9. Anxiety, depression, bipolar disorder, and schizophrenia. 10. Elevated troponins in the indeterminate range probably secondary to cocaine abuse. PLAN: Stable for dc to [facility] when bed available Cont current meds as below Review of Systems - Review of Systems Respiratory: negative: Cough, Dry, Shortness of Breath, Hemoptysis, SOB with Excertion, Pleuritic Pain, Sputum, Wheezing Cardiovascular: negative: chest pain, palpitations, orthopnea, paroxysmal nocturnal dyspnea, edema, light headedness, other - Medications/Allergies Allergies/Adverse Reactions: Allergies Allergy/AdvReac Type Severity Reaction Status Date / Time No Known Drug Allergies Allergy Verified 11/09/17 12:56 Medications: Current Medications Acetaminophen (Tylenol) 650 mg PO Q4H PRN PRN Reason: Headache/Fever or Pain Last Admin: 12/09/17 09:36 Dose: 650 mg Aspirin (Ecotrin) 81 mg PO DAILY [facility] Last Admin: 12/09/17 09:38 Dose: 81 mg Benztropine Mesylate (Cogentin) 0.5 mg PO BID [facility] Last Admin: 12/09/17 09:38 Dose: 0.5 mg Buspirone HCl (Buspar) 15 mg PO BID [facility] Last Admin: 12/09/17 09:38 Dose: 15 mg Calcium Carbonate (Tums) 1,000 mg PO Q4H PRN PRN Reason: Heartburn or Indigestion Clonidine (Catapres) 0.1 mg PO Q4H PRN PRN Reason: Systolic BP > 180 Divalproex Sodium (Depakote) 500 mg PO [facility] Docusate Sodium (Colace) 100 mg PO BID [facility] Last Admin: 12/09/17 09:39 Dose: Not Given Famotidine (Pepcid) 20 mg PO QPM [facility] Last Admin: 12/08/17 20:40 Dose: 20 mg Fluoxetine HCl (Prozac) 40 mg PO DAILY [facility] Last Admin: 12/09/17 09:37 Dose: 40 mg Folic Acid (Folvite) 1 mg PO DAILY [facility] Last Admin: 12/09/17 09:39 Dose: 1 mg Haloperidol (Haldol) 5 mg PO BID [facility] Last Admin: 12/09/17 09:39 Dose: 5 mg Heparin Sodium (Porcine) (Heparin) 5,000 units SC BID [facility] Last Admin: 12/09/17 09:39 Dose: 5,000 units Multivitamins (Theragran) 1 tab PO DAILY [facility] Last Admin: 12/09/17 09:39 Dose: 1 tab Nitroglycerin (Nitrostat) 0.4 mg PO Q5MIN PRN PRN Reason: Chest Pain Senna (Senokot) 2 tab PO HSPRN PRN PRN Reason: Constipation Sodium Chloride (Flush - Normal Saline) 10 ml IVF Q12HR [facility] Last Admin: 12/09/17 09:45 Dose: 10 ml Sodium Chloride (Flush - Normal Saline) 10 ml IVF PRN PRN PRN Reason: Saline Flush Thiamine HCl (Thiamine) 100 mg PO DAILY [facility] Last Admin: 12/09/17 09:39 Dose: 100 mg
[2017-12-09] MEDS: Divalproex Sodium DR 500 MG TAB PO SCH (21:59)
[2017-12-09] MEDS: Famotidine 20 MG TAB PO SCH (21:59)
[2017-12-10 05:01] LABS: #Eosinphils 0.7 thou/uL (0.0-0.7); #Monocytes 0.6 thou/uL (0.11-0.59); #Neutrophils 3.1 thou/uL (1.40-6.50); %Basophils 0.6 % (0.0-1.0); %Eosinophils 9.1 % (0.0-10.0); %Lymphocytes 40.3 % (21.0-51.0); %Monocytes 8.5 % (0.0-10.0); %Neutrophils 41.5 % (42.0-75.0); Hemoglobin 8.7 g/dL (14.0-18.0); Mean Corpuscular HGB CONC 34.5 g/dL (32.0-36.0); Mean Corpuscular Hemoglobin 23.7 pg (27.0-31.0); Mean Corpuscular Volume 68.8 fL (78.0-98.0); Mean Platelet Volume 7.4 fL (7.4-10.4); Platelet Count 332 thou/uL (130-400); RBC Distribution Width 15.2 % (11.5-14.5); Red Blood Cell (RBC) Count 3.68 mill/uL (4.70-6.10); White Blood Cell (WBC) Count 7.5 thou/uL (4.8-10.8)
[2017-12-10 05:23] LABS: Anion Gap 12 mmol/L (10-20); BUN (Urea Nitrogen) 18 mg/dL (8.4-25.7); Calc. Creatinine Clearance 44 mL/min (70-130); Calcium 8.7 mg/dL (7.8-10.44); Carbon Dioxide 23 mmol/L (22-29); Chloride 108 mmol/L (98-107); Estimated GFR-MDRD 39; Glucose 88 mg/dL (70-105); Magnesium 1.5 mg/dL (1.6-2.6); Potassium 4.5 mmol/L (3.5-5.1); Sodium 138 mmol/L (136-145)
[2017-12-10] MEDS: Folic Acid 1 MG TAB PO SCH (08:08)
[2017-12-10] MEDS: Benztropine 1 MG TAB PO SCH ×2 (08:08→21:15)
[2017-12-10] MEDS: Aspirin 81 mg Enteric Coated Tablet PO SCH (08:08)
[2017-12-10] MEDS: busPIRone HCl 10 MG TAB PO SCH ×2 (08:09→21:15)
[2017-12-10] MEDS: FLUoxetine HCl 20 MG CAP PO SCH (08:10)
[2017-12-10] MEDS: Haloperidol 5 MG TAB PO SCH ×2 (08:10→21:15)
[2017-12-10] MEDS: Multivit, Therapeutic 1 TAB PO SCH (08:10)
[2017-12-10] MEDS: Magnesium Chloride 64 MG TAB PO SCH ×2 (08:11→21:15)
[2017-12-10] MEDS: Heparin 5,000 UNITS/ML VIAL SC SCH ×2 (08:28→21:16)
[2017-12-10] MEDS: Docusate 100 MG CAP PO SCH ×2 (08:28→21:16)
--- NOTE | 2017-12-10 11:15 | PRG ---
DATE OF SERVICE: 12/10/2017 SUBJECTIVE: Mr. Smith is a 52-year-old black male who has history of schizophrenia/bipolar disorde r and was admitted for acute kidney injury with rhabdomyolysis. He received IV volume repletion with improvement of renal function. However, I did note that his creatinine is slightly worsening in the last few days. His most recent creatinine is now noted at 2.15 and yesterday this was 2.01. I stil l feel that he may be near baseline renal function. No other complaints today. PHYSICAL EXAMINATION: VITAL SIGNS: Blood pressure is 118/75, heart rate 71, respiratory rate 16, temperature 97.9, pulse o x 94%. GENERAL: Awake, flat affect, not in distress. SKIN: Adequate turgor. HEENT: He has slightly pale conjunctivae, anicteric sclerae. NECK: No neck mass, no carotid bruits, no JVD. CHEST: No deformities. LUNGS: Clear breath sounds, no wheezing, no crackles. HEART: Normal sinus rhythm. No murmur, no gallops or rubs. ABDOMEN: Globular, soft, nontender. No masses. EXTREMITIES: No edema. No deformities. MEDICATIONS: 12/10/2017 - Reviewed. LABORATORY: 12/10/2017 - White count 7.5, hemoglobin 8.7, sodium 138, potassium 4.5, chloride 108, c arbon dioxide 23, BUN 18, creatinine 2.15, glucose 88, calcium 8.7, magnesium 1.5. ASSESSMENT AND PLAN: 1. Acute kidney injury/chronic renal failure, stable renal function except for the mildly higher cre atinine of 2.15, when compared to yesterday 2.01. If the renal function will further worsen, conside r restarting normal saline at 100 mL per hour. There is no indication for any dialytic intervention. 2. Anemia, continuing to observe. I have not ruled out to consider this patient for weekly Epogen. 3. Schizophrenia, bipolar disorder, stable. Awaiting placement. We will be rechecking a base met and CBC in a.m.
[2017-12-10 15:45] VITALS: BMI 26.4
[2017-12-10] MEDS: Divalproex Sodium DR 500 MG TAB PO SCH (21:15)
[2017-12-10] MEDS: Famotidine 20 MG TAB PO SCH (21:15)
--- NOTE | 2017-12-10 23:48 | PDOC.PN ---
- Subjective Encounter Start Date: 12/10/17 Encounter Start Time: 13:00 Patient seen and examined for RAMONA/SI. No new complaints. No overnight events - Objective Resuscitation Status: Resuscitation Status FULL:Full Resuscitation MAR Reviewed: Yes Vital Signs & Weight: Vital Signs (12 hours) Temp Pulse Resp BP Pulse Ox 12/10/17 20:26 98.2 F 79 16 108/67 93 L Weight Admit Weight 168 lb Weight 168 lb 14.4 oz Result Diagrams: 12/11/17 03:25 12/11/17 03:25 Phys Exam - Physical Examination Constitutional: NAD Respiratory: no wheezing, no rhonchi Cardiovascular: RRR, no rub Gastrointestinal: soft, positive bowel sounds Musculoskeletal: no edema Neurological: moves all 4 limbs Dx/Plan - Plan DVT proph w/SCDs IMPRESSION: 1. Acute kidney injury with rhabdomyolysis/Dehydration. improved 2. Suicidal ideation. 3. Chronic anemia with recent EGD and colonoscopy. 4. Polysubstance abuse - Cocaine positive 5. Tobacco dependence. 6. Abnormal liver function tests, probably secondary to dehydration. improving 7. Metabolic acidosis. 8. Starvation ketosis. 9. Anxiety, depression, bipolar disorder, and schizophrenia. 10. Elevated troponins in the indeterminate range probably secondary to cocaine abuse/ CKD 3 PLAN: Stable for dc to [place] when bed available Cont current meds as below Review of Systems - Review of Systems Respiratory: negative: Cough, Dry, Shortness of Breath, Hemoptysis, SOB with Excertion, Pleuritic Pain, Sputum, Wheezing Cardiovascular: negative: chest pain, palpitations, orthopnea, paroxysmal nocturnal dyspnea, edema, light headedness, other - Medications/Allergies Allergies/Adverse Reactions: Allergies Allergy/AdvReac Type Severity Reaction Status Date / Time No Known Drug Allergies Allergy Verified 11/09/17 12:56 shellfish derived Allergy Verified 12/10/17 15:40 Medications: Current Medications Acetaminophen (Tylenol) 650 mg PO Q4H PRN PRN Reason: Headache/Fever or Pain Last Admin: 12/09/17 09:36 Dose: 650 mg Aspirin (Ecotrin) 81 mg PO DAILY [facility] Last Admin: 12/10/17 08:08 Dose: 81 mg Benztropine Mesylate (Cogentin) 0.5 mg PO BID [facility] Last Admin: 12/10/17 21:15 Dose: 0.5 mg Buspirone HCl (Buspar) 15 mg PO BID [facility] Last Admin: 12/10/17 21:15 Dose: 15 mg Calcium Carbonate (Tums) 1,000 mg PO Q4H PRN PRN Reason: Heartburn or Indigestion Clonidine (Catapres) 0.1 mg PO Q4H PRN PRN Reason: Systolic BP > 180 Divalproex Sodium (Depakote) 500 mg PO HS [facility] Last Admin: 12/10/17 21:15 Dose: 500 mg Docusate Sodium (Colace) 100 mg PO BID [facility] Last Admin: 12/10/17 21:16 Dose: Not Given Famotidine (Pepcid) 20 mg PO QPM [facility] Last Admin: 12/10/17 21:15 Dose: 20 mg Fluoxetine HCl (Prozac) 40 mg PO DAILY [facility] Last Admin: 12/10/17 08:10 Dose: 40 mg Folic Acid (Folvite) 1 mg PO DAILY [facility] Last Admin: 12/10/17 08:08 Dose: 1 mg Haloperidol (Haldol) 5 mg PO BID [facility] Last Admin: 12/10/17 21:15 Dose: 5 mg Heparin Sodium (Porcine) (Heparin) 5,000 units SC BID [facility] Last Admin: 12/10/17 21:16 Dose: Not Given Magnesium Chloride (Slow-Mag) 128 mg PO BID [facility] Last Admin: 12/10/17 21:15 Dose: 128 mg Multivitamins (Theragran) 1 tab PO DAILY [facility] Last Admin: 12/10/17 08:10 Dose: 1 tab Nitroglycerin (Nitrostat) 0.4 mg PO Q5MIN PRN PRN Reason: Chest Pain Senna (Senokot) 2 tab PO HSPRN PRN PRN Reason: Constipation Sodium Chloride (Flush - Normal Saline) 10 ml IVF Q12HR [facility] Last Admin: 12/10/17 21:18 Dose: 10 ml Sodium Chloride (Flush - Normal Saline) 10 ml IVF PRN PRN PRN Reason: Saline Flush Thiamine HCl (Thiamine) 100 mg PO DAILY [facility] Last Admin: 12/10/17 08:10 Dose: 100 mg
[2017-12-11] MEDS: Acetaminophen 325 MG TAB PO PRN (00:25)
[2017-12-11 05:20] LABS: #Basophils 0.1 thou/uL (0.0-0.2); #Eosinphils 0.7 thou/uL (0.0-0.7); #Lymphocytes 3.1 thou/uL (1.20-3.40); #Monocytes 0.8 thou/uL (0.11-0.59); #Neutrophils 3.4 thou/uL (1.40-6.50); %Basophils 1.4 % (0.0-1.0); %Eosinophils 8.2 % (0.0-10.0); %Lymphocytes 38.7 % (21.0-51.0); %Monocytes 9.4 % (0.0-10.0); %Neutrophils 42.3 % (42.0-75.0); Hemoglobin 8.7 g/dL (14.0-18.0); Mean Corpuscular HGB CONC 34.8 g/dL (32.0-36.0); Mean Corpuscular Hemoglobin 23.9 pg (27.0-31.0); Mean Corpuscular Volume 68.6 fL (78.0-98.0); Mean Platelet Volume 7.7 fL (7.4-10.4); Platelet Count 324 thou/uL (130-400); RBC Distribution Width 15.4 % (11.5-14.5); Red Blood Cell (RBC) Count 3.62 mill/uL (4.70-6.10)
[2017-12-11 05:35] LABS: Anion Gap 13 mmol/L (10-20); BUN (Urea Nitrogen) 19 mg/dL (8.4-25.7); Calc. Creatinine Clearance 47 mL/min (70-130); Calcium 8.8 mg/dL (7.8-10.44); Carbon Dioxide 22 mmol/L (22-29); Chloride 107 mmol/L (98-107); Estimated GFR-MDRD 43; Glucose 83 mg/dL (70-105); Potassium 4.3 mmol/L (3.5-5.1); Sodium 138 mmol/L (136-145)
[2017-12-11] MEDS: Benztropine 1 MG TAB PO SCH ×2 (08:40→20:08)
[2017-12-11] MEDS: Magnesium Chloride 64 MG TAB PO SCH ×2 (08:40→21:24)
[2017-12-11] MEDS: Aspirin 81 mg Enteric Coated Tablet PO SCH (08:40)
[2017-12-11] MEDS: Haloperidol 5 MG TAB PO SCH ×2 (08:40→20:08)
[2017-12-11] MEDS: Multivit, Therapeutic 1 TAB PO SCH (08:41)
[2017-12-11] MEDS: busPIRone HCl 10 MG TAB PO SCH ×2 (08:41→20:09)
[2017-12-11] MEDS: FLUoxetine HCl 20 MG CAP PO SCH (08:41)
[2017-12-11] MEDS: Folic Acid 1 MG TAB PO SCH (08:41)
[2017-12-11] MEDS: Docusate 100 MG CAP PO SCH ×2 (08:42→20:10)
[2017-12-11] MEDS: Heparin 5,000 UNITS/ML VIAL SC SCH ×2 (08:42→20:11)
[2017-12-11] MEDS: Famotidine 20 MG TAB PO SCH (20:10)
[2017-12-11] MEDS: Divalproex Sodium DR 500 MG TAB PO SCH (20:10)
--- NOTE | 2017-12-11 21:34 | PDOC.PN ---
- Subjective Encounter Start Date: 12/11/17 Encounter Start Time: 12:00 Patient seen and examined for RAMONA. No new complaints. No overnight events - Objective Resuscitation Status: Resuscitation Status FULL:Full Resuscitation MAR Reviewed: Yes Vital Signs & Weight: Vital Signs (12 hours) Temp Pulse Resp BP BP Pulse Ox 12/11/17 20:32 98.3 F 73 16 125/77 97 12/11/17 20:30 98.3 F 73 18 125/77 97 12/11/17 16:22 98.6 F 82 14 123/79 96 12/11/17 11:18 98.4 F 71 14 108/69 97 Weight Admit Weight 168 lb Weight 168 lb 14.4 oz I&O: 12/10/17 12/11/17 12/12/17 06:59 06:59 06:59 Intake Total 420 Balance 420 Result Diagrams: 12/11/17 03:25 12/11/17 03:25 Phys Exam - Physical Examination Constitutional: NAD Respiratory: no wheezing, no rhonchi Cardiovascular: RRR, no rub Gastrointestinal: soft, positive bowel sounds Musculoskeletal: no edema Neurological: moves all 4 limbs Dx/Plan - Plan DVT proph w/SCDs IMPRESSION: 1. Acute kidney injury with rhabdomyolysis/Dehydration. improved 2. Suicidal ideation. 3. Chronic anemia with recent EGD and colonoscopy. 4. Polysubstance abuse - Cocaine positive 5. Tobacco dependence. 6. Abnormal liver function tests, probably secondary to dehydration. improving 7. Metabolic acidosis. 8. Starvation ketosis. 9. Anxiety, depression, bipolar disorder, and schizophrenia. 10. Elevated troponins in the indeterminate range probably secondary to cocaine abuse/ CKD 3 PLAN: Stable for dc to [place] when bed available Cont current meds as below Review of Systems - Review of Systems Cardiovascular: negative: chest pain, palpitations, orthopnea, paroxysmal nocturnal dyspnea, edema, light headedness, other Gastrointestinal: negative: Nausea, Vomiting, Abdominal Pain, Diarrhea, Constipation, Melena, Hematochezia, Other - Medications/Allergies Allergies/Adverse Reactions: Allergies Allergy/AdvReac Type Severity Reaction Status Date / Time No Known Drug Allergies Allergy Verified 11/09/17 12:56 shellfish derived Allergy Verified 12/10/17 15:40 Medications: Current Medications Acetaminophen (Tylenol) 650 mg PO Q4H PRN PRN Reason: Headache/Fever or Pain Last Admin: 12/11/17 00:25 Dose: 650 mg Aspirin (Ecotrin) 81 mg PO DAILY [facility] Last Admin: 12/11/17 08:40 Dose: 81 mg Benztropine Mesylate (Cogentin) 0.5 mg PO BID [facility] Last Admin: 12/11/17 20:08 Dose: 0.5 mg Buspirone HCl (Buspar) 15 mg PO BID [facility] Last Admin: 12/11/17 20:09 Dose: 15 mg Calcium Carbonate (Tums) 1,000 mg PO Q4H PRN PRN Reason: Heartburn or Indigestion Clonidine (Catapres) 0.1 mg PO Q4H PRN PRN Reason: Systolic BP > 180 Divalproex Sodium (Depakote) 500 mg PO HS [facility] Last Admin: 12/11/17 20:10 Dose: 500 mg Docusate Sodium (Colace) 100 mg PO BID [facility] Last Admin: 12/11/17 20:10 Dose: Not Given Famotidine (Pepcid) 20 mg PO QPM [facility] Last Admin: 12/11/17 20:10 Dose: 20 mg Fluoxetine HCl (Prozac) 40 mg PO DAILY [facility] Last Admin: 12/11/17 08:41 Dose: 40 mg Folic Acid (Folvite) 1 mg PO DAILY [facility] Last Admin: 12/11/17 08:41 Dose: 1 mg Haloperidol (Haldol) 5 mg PO BID [facility] Last Admin: 12/11/17 20:08 Dose: 5 mg Heparin Sodium (Porcine) (Heparin) 5,000 units SC BID [facility] Last Admin: 12/11/17 20:11 Dose: Not Given Magnesium Chloride (Slow-Mag) 128 mg PO BID [facility] Last Admin: 12/11/17 21:24 Dose: 128 mg Multivitamins (Theragran) 1 tab PO DAILY [facility] Last Admin: 12/11/17 08:41 Dose: 1 tab Nitroglycerin (Nitrostat) 0.4 mg PO Q5MIN PRN PRN Reason: Chest Pain Senna (Senokot) 2 tab PO HSPRN PRN PRN Reason: Constipation Sodium Chloride (Flush - Normal Saline) 10 ml IVF Q12HR [facility] Last Admin: 12/11/17 21:24 Dose: 10 ml Sodium Chloride (Flush - Normal Saline) 10 ml IVF PRN PRN PRN Reason: Saline Flush Thiamine HCl (Thiamine) 100 mg PO DAILY [facility] Last Admin: 12/11/17 08:41 Dose: 100 mg
--- NOTE | 2017-12-12 07:57 | PRG ---
DATE OF SERVICE: 12/12/2017 SERVICE: Renal Medicine. SUBJECTIVE: Mr. Smith is a 52-year-old black male with known history of schizophrenia/bipolar diso rder, who was seen by the Renal Service for his acute kidney injury on top of his chronic renal failu re. History of IV volume repletion. He was also found to have some degree of rhabdomyolysis. Renal function does improve over time. We are currently awaiting placement for inpatient psychiatric plac ement. No new complaints today. Denies any chest pain or shortness of breath. OBJECTIVE: VITAL SIGNS: Blood pressure is 125/77, heart rate 73, respiratory rate 16, temperature 98.3, pulse o x 97%. GENERAL: Noted to be awake, supine, comfortable, flat affect, not in distress. SKIN: Adequate turgor. HEENT: Slightly pale conjunctivae, anicteric sclerae. NECK: No neck mass, no carotid bruits, no JVD. CHEST: No deformities. LUNGS: Clear breath sounds, no wheezing, no crackles. HEART: Normal sinus rhythm. No murmur, no gallops or rubs. ABDOMEN: Globular, soft, nontender, no masses. EXTREMITIES: No edema, no deformities. MEDICATIONS: Of 12/12/2017 was reviewed. LABORATORY DATA: Of 12/11/2017, white count 8, hemoglobin 8.7. Sodium 138, potassium 4.3, chloride 107, carbon dioxide 22, BUN 19, creatinine 2, glucose 83, calcium 8.8. ASSESSMENT AND PLAN: 1. Acute kidney injury on top of chronic renal failure, stable renal function. Last creatinine note d at 2.0, which is near baseline. No indication for any dialytic intervention. Agree with current m anagement. No changes to be made with this medication. 2. Schizophrenia/bipolar disorder - awaiting placement. Agree with current management.
[2017-12-12] MEDS: Aspirin 81 mg Enteric Coated Tablet PO SCH (09:20)
[2017-12-12] MEDS: FLUoxetine HCl 20 MG CAP PO SCH (09:20)
[2017-12-12] MEDS: Benztropine 1 MG TAB PO SCH ×2 (09:20→20:37)
[2017-12-12] MEDS: Multivit, Therapeutic 1 TAB PO SCH (09:20)
[2017-12-12] MEDS: busPIRone HCl 10 MG TAB PO SCH ×2 (09:20→20:38)
[2017-12-12] MEDS: Haloperidol 5 MG TAB PO SCH ×2 (09:20→20:38)
[2017-12-12] MEDS: Folic Acid 1 MG TAB PO SCH (09:20)
[2017-12-12] MEDS: Heparin 5,000 UNITS/ML VIAL SC SCH ×2 (09:22→18:52)
[2017-12-12] MEDS: Docusate 100 MG CAP PO SCH ×2 (09:22→19:11)
[2017-12-12] MEDS: Magnesium Chloride 64 MG TAB PO SCH ×2 (10:28→20:36)
[2017-12-12] MEDS: Acetaminophen 325 MG TAB PO PRN (15:50)
[2017-12-12] MEDS: Famotidine 20 MG TAB PO SCH (20:38)
[2017-12-12] MEDS: Divalproex Sodium DR 500 MG TAB PO SCH (20:38)
--- NOTE | 2017-12-12 23:19 | PDOC.PN ---
- Subjective Encounter Start Date: 12/12/17 Encounter Start Time: 10:45 Patient seen and examined for SI. No new complaints. No overnight events - Objective Resuscitation Status: Resuscitation Status FULL:Full Resuscitation MAR Reviewed: Yes Vital Signs & Weight: Vital Signs (12 hours) Temp Pulse Resp BP Pulse Ox 12/12/17 20:00 98.5 F 71 20 130/71 96 Weight Admit Weight 168 lb Weight 168 lb 14.4 oz I&O: 12/11/17 12/12/17 12/13/17 06:59 06:59 06:59 Intake Total 420 600 Balance 420 600 Result Diagrams: 12/11/17 03:25 12/11/17 03:25 Phys Exam - Physical Examination Constitutional: NAD Respiratory: no wheezing, no rhonchi Cardiovascular: RRR, no rub Gastrointestinal: soft, non-tender, positive bowel sounds Musculoskeletal: no edema Neurological: moves all 4 limbs Dx/Plan - Plan DVT proph w/SCDs IMPRESSION: 1. Acute kidney injury with rhabdomyolysis/Dehydration. improved 2. Suicidal ideation. 3. Chronic anemia with recent EGD and colonoscopy. 4. Polysubstance abuse - Cocaine positive 5. Tobacco dependence. 6. Abnormal liver function tests, probably secondary to dehydration. improving 7. Metabolic acidosis. 8. Starvation ketosis. 9. Anxiety, depression, bipolar disorder, and schizophrenia. 10. Elevated troponins in the indeterminate range probably secondary to cocaine abuse/ CKD 3 PLAN: Stable for dc to [place] when bed available Cont current meds as below Review of Systems - Review of Systems Respiratory: negative: Cough, Dry, Shortness of Breath, Hemoptysis, SOB with Excertion, Pleuritic Pain, Sputum, Wheezing Cardiovascular: negative: chest pain, palpitations, orthopnea, paroxysmal nocturnal dyspnea, edema, light headedness, other - Medications/Allergies Allergies/Adverse Reactions: Allergies Allergy/AdvReac Type Severity Reaction Status Date / Time No Known Drug Allergies Allergy Verified 11/09/17 12:56 shellfish derived Allergy Verified 12/10/17 15:40 Medications: Current Medications Acetaminophen (Tylenol) 650 mg PO Q4H PRN PRN Reason: Headache/Fever or Pain Last Admin: 12/12/17 15:50 Dose: 650 mg Aspirin (Ecotrin) 81 mg PO DAILY [facility] Last Admin: 12/12/17 09:20 Dose: 81 mg Benztropine Mesylate (Cogentin) 0.5 mg PO BID [facility] Last Admin: 12/12/17 20:37 Dose: 0.5 mg Buspirone HCl (Buspar) 15 mg PO BID [facility] Last Admin: 12/12/17 20:38 Dose: 15 mg Calcium Carbonate (Tums) 1,000 mg PO Q4H PRN PRN Reason: Heartburn or Indigestion Clonidine (Catapres) 0.1 mg PO Q4H PRN PRN Reason: Systolic BP > 180 Divalproex Sodium (Depakote) 500 mg PO HS [facility] Last Admin: 12/12/17 20:38 Dose: 500 mg Docusate Sodium (Colace) 100 mg PO BID [facility] Last Admin: 12/12/17 19:11 Dose: Not Given Famotidine (Pepcid) 20 mg PO QPM [facility] Last Admin: 12/12/17 20:38 Dose: 20 mg Fluoxetine HCl (Prozac) 40 mg PO DAILY [facility] Last Admin: 12/12/17 09:20 Dose: 40 mg Folic Acid (Folvite) 1 mg PO DAILY [facility] Last Admin: 12/12/17 09:20 Dose: 1 mg Haloperidol (Haldol) 5 mg PO BID [facility] Last Admin: 12/12/17 20:38 Dose: 5 mg Heparin Sodium (Porcine) (Heparin) 5,000 units SC BID [facility] Last Admin: 12/12/17 18:52 Dose: Not Given Magnesium Chloride (Slow-Mag) 128 mg PO BID [facility] Last Admin: 12/12/17 20:36 Dose: 128 mg Multivitamins (Theragran) 1 tab PO DAILY [facility] Last Admin: 12/12/17 09:20 Dose: 1 tab Nitroglycerin (Nitrostat) 0.4 mg PO Q5MIN PRN PRN Reason: Chest Pain Senna (Senokot) 2 tab PO HSPRN PRN PRN Reason: Constipation Sodium Chloride (Flush - Normal Saline) 10 ml IVF Q12HR [facility] Last Admin: 12/12/17 20:39 Dose: 10 ml Sodium Chloride (Flush - Normal Saline) 10 ml IVF PRN PRN PRN Reason: Saline Flush Thiamine HCl (Thiamine) 100 mg PO DAILY [facility] Last Admin: 12/12/17 09:20 Dose: 100 mg
[2017-12-13] MEDS: Docusate 100 MG CAP PO SCH ×2 (07:10→21:09)
[2017-12-13] MEDS: Benztropine 1 MG TAB PO SCH ×2 (08:02→21:08)
[2017-12-13] MEDS: Haloperidol 5 MG TAB PO SCH ×2 (08:02→21:08)
[2017-12-13] MEDS: FLUoxetine HCl 20 MG CAP PO SCH (08:03)
[2017-12-13] MEDS: Multivit, Therapeutic 1 TAB PO SCH (08:03)
[2017-12-13] MEDS: Aspirin 81 mg Enteric Coated Tablet PO SCH (08:04)
[2017-12-13] MEDS: Folic Acid 1 MG TAB PO SCH (08:04)
[2017-12-13] MEDS: busPIRone HCl 10 MG TAB PO SCH ×2 (08:04→21:08)
[2017-12-13] MEDS: Heparin 5,000 UNITS/ML VIAL SC SCH ×2 (08:08→21:09)
[2017-12-13] MEDS: Magnesium Chloride 64 MG TAB PO SCH ×2 (08:09→21:09)
--- NOTE | 2017-12-13 13:56 | PDOC.PN ---
- Subjective Encounter Start Date: 12/13/17 Encounter Start Time: 11:00 Patient seen and examined. No new complaints. No overnight events - Objective Resuscitation Status: Resuscitation Status FULL:Full Resuscitation MAR Reviewed: Yes Vital Signs & Weight: Vital Signs (12 hours) Temp Pulse Resp BP Pulse Ox 12/13/17 08:05 98.0 F 68 18 116/73 97 12/13/17 08:00 98.0 F 68 18 Weight Admit Weight 168 lb Weight 168 lb 14.4 oz I&O: 12/12/17 12/13/17 12/14/17 06:59 06:59 06:59 Intake Total 420 600 Balance 420 600 Result Diagrams: 12/11/17 03:25 12/11/17 03:25 Phys Exam - Physical Examination Constitutional: NAD Respiratory: no wheezing, no rhonchi Cardiovascular: RRR, no rub Gastrointestinal: soft, positive bowel sounds Dx/Plan - Plan DVT proph w/SCDs IMPRESSION: 1. Acute kidney injury with rhabdomyolysis/Dehydration. improved 2. Suicidal ideation. 3. Chronic anemia with recent EGD and colonoscopy. 4. Polysubstance abuse - Cocaine positive 5. Tobacco dependence. 6. Abnormal liver function tests, probably secondary to dehydration. improving 7. Metabolic acidosis. 8. Starvation ketosis. 9. Anxiety, depression, bipolar disorder, and schizophrenia. 10. Elevated troponins in the indeterminate range probably secondary to cocaine abuse/ CKD 3 PLAN: Stable for dc to [facility] when bed available Cont current meds as below Review of Systems - Review of Systems Respiratory: negative: Cough, Dry, Shortness of Breath, Hemoptysis, SOB with Excertion, Pleuritic Pain, Sputum, Wheezing Cardiovascular: negative: chest pain, palpitations, orthopnea, paroxysmal nocturnal dyspnea, edema, light headedness, other - Medications/Allergies Allergies/Adverse Reactions: Allergies Allergy/AdvReac Type Severity Reaction Status Date / Time No Known Drug Allergies Allergy Verified 11/09/17 12:56 shellfish derived Allergy Verified 12/10/17 15:40 Medications: Current Medications Acetaminophen (Tylenol) 650 mg PO Q4H PRN PRN Reason: Headache/Fever or Pain Last Admin: 12/12/17 15:50 Dose: 650 mg Aspirin (Ecotrin) 81 mg PO DAILY [facility] Last Admin: 12/13/17 08:04 Dose: 81 mg Benztropine Mesylate (Cogentin) 0.5 mg PO BID [facility] Last Admin: 12/13/17 08:02 Dose: 0.5 mg Buspirone HCl (Buspar) 15 mg PO BID [facility] Last Admin: 12/13/17 08:04 Dose: 15 mg Calcium Carbonate (Tums) 1,000 mg PO Q4H PRN PRN Reason: Heartburn or Indigestion Clonidine (Catapres) 0.1 mg PO Q4H PRN PRN Reason: Systolic BP > 180 Divalproex Sodium (Depakote) 500 mg PO HS [facility] Last Admin: 12/12/17 20:38 Dose: 500 mg Docusate Sodium (Colace) 100 mg PO BID [facility] Last Admin: 12/13/17 07:10 Dose: Not Given Famotidine (Pepcid) 20 mg PO QPM [facility] Last Admin: 12/12/17 20:38 Dose: 20 mg Fluoxetine HCl (Prozac) 40 mg PO DAILY [facility] Last Admin: 12/13/17 08:03 Dose: 40 mg Folic Acid (Folvite) 1 mg PO DAILY [facility] Last Admin: 12/13/17 08:04 Dose: 1 mg Haloperidol (Haldol) 5 mg PO BID [facility] Last Admin: 12/13/17 08:02 Dose: 5 mg Heparin Sodium (Porcine) (Heparin) 5,000 units SC BID [facility] Last Admin: 12/13/17 08:08 Dose: Not Given Magnesium Chloride (Slow-Mag) 128 mg PO BID [facility] Last Admin: 12/13/17 08:09 Dose: Not Given Multivitamins (Theragran) 1 tab PO DAILY [facility] Last Admin: 12/13/17 08:03 Dose: 1 tab Nitroglycerin (Nitrostat) 0.4 mg PO Q5MIN PRN PRN Reason: Chest Pain Senna (Senokot) 2 tab PO HSPRN PRN PRN Reason: Constipation Sodium Chloride (Flush - Normal Saline) 10 ml IVF Q12HR [facility] Last Admin: 12/13/17 08:08 Dose: 10 ml Sodium Chloride (Flush - Normal Saline) 10 ml IVF PRN PRN PRN Reason: Saline Flush Thiamine HCl (Thiamine) 100 mg PO DAILY [facility] Last Admin: 12/13/17 08:03 Dose: 100 mg
[2017-12-13] MEDS: Famotidine 20 MG TAB PO SCH (21:08)
[2017-12-13] MEDS: Divalproex Sodium DR 500 MG TAB PO SCH (21:09)
[2017-12-14 05:02] LABS: #Basophils 0.1 thou/uL (0.0-0.2); #Eosinphils 0.4 thou/uL (0.0-0.7); #Lymphocytes 2.7 thou/uL (1.20-3.40); #Monocytes 0.5 thou/uL (0.11-0.59); #Neutrophils 3.5 thou/uL (1.40-6.50); %Eosinophils 5.8 % (0.0-10.0); %Lymphocytes 38.2 % (21.0-51.0); %Monocytes 6.4 % (0.0-10.0); %Neutrophils 48.6 % (42.0-75.0); Hemoglobin 9.3 g/dL (14.0-18.0); Mean Corpuscular HGB CONC 34.3 g/dL (32.0-36.0); Mean Corpuscular Hemoglobin 23.6 pg (27.0-31.0); Mean Corpuscular Volume 68.7 fL (78.0-98.0); Mean Platelet Volume 7.2 fL (7.4-10.4); Platelet Count 389 thou/uL (130-400); RBC Distribution Width 15.3 % (11.5-14.5); Red Blood Cell (RBC) Count 3.95 mill/uL (4.70-6.10); White Blood Cell (WBC) Count 7.1 thou/uL (4.8-10.8)
[2017-12-14 05:23] LABS: Anion Gap 13 mmol/L (10-20); BUN (Urea Nitrogen) 19 mg/dL (8.4-25.7); Calc. Creatinine Clearance 48 mL/min (70-130); Calcium 9.2 mg/dL (7.8-10.44); Carbon Dioxide 21 mmol/L (22-29); Chloride 108 mmol/L (98-107); Estimated GFR-MDRD 44; Glucose 86 mg/dL (70-105); Potassium 4.4 mmol/L (3.5-5.1); Sodium 138 mmol/L (136-145)
[2017-12-14] MEDS: FLUoxetine HCl 20 MG CAP PO SCH (08:15)
[2017-12-14] MEDS: Multivit, Therapeutic 1 TAB PO SCH (08:15)
[2017-12-14] MEDS: Magnesium Chloride 64 MG TAB PO SCH ×2 (08:15→21:18)
[2017-12-14] MEDS: busPIRone HCl 10 MG TAB PO SCH ×2 (08:15→21:17)
[2017-12-14] MEDS: Folic Acid 1 MG TAB PO SCH (08:16)
[2017-12-14] MEDS: Haloperidol 5 MG TAB PO SCH ×2 (08:16→21:18)
[2017-12-14] MEDS: Docusate 100 MG CAP PO SCH ×2 (08:16→21:18)
[2017-12-14] MEDS: Aspirin 81 mg Enteric Coated Tablet PO SCH (08:16)
[2017-12-14] MEDS: Heparin 5,000 UNITS/ML VIAL SC SCH ×2 (08:17→21:18)
[2017-12-14] MEDS: Benztropine 1 MG TAB PO SCH ×2 (08:17→21:18)
--- NOTE | 2017-12-14 11:10 | PRG ---
DATE OF SERVICE: 12/14/2017 HISTORY OF PRESENT ILLNESS: Mr. Smith is a 52-year-old black male with acute kidney injury on top of chronic renal failure. He was empirically volume repleted. He has underlying schizophrenia. We are awaiting placement. He has received volume repletion in the past. Renal function has been stabl e for the last several days. PHYSICAL EXAMINATION: VITAL SIGNS: Blood pressure is 120/83, heart rate 79, respiratory rate 16, temperature 98.2, pulse o x 96%. GENERAL: Noted to be awake, alert, comfortable, not in distress. SKIN: Adequate turgor. HEENT: Pinkish conjunctivae, anicteric sclerae. NECK: No neck mass, no carotid bruits, no JVD. CHEST: No deformities. LUNGS: Clear breath sounds. HEART: Normal sinus rhythm. No murmur, no gallops. No rubs. ABDOMEN: Globular, soft, nontender, no masses. EXTREMITIES: No edema, no deformities. MEDICATIONS: 12/14/2017 - Reviewed. LABORATORY: 12/14/2017 - White count 7.1, hemoglobin 9.3. Sodium 138, potassium 4.4, chloride 100, carbon dioxide 21, BUN 19, creatinine 1.95, glucose 86, calcium 9.2. ASSESSMENT AND PLAN: 1. Acute kidney injury on top of his chronic renal failure, stable renal function. Creatinine 1.95. It is at its best value. Continue current management. Hold off any diuretics or any CLAUDIO inhibitor s. No indication for any dialytic intervention. 2. Schizophrenia. Awaiting placement. Overall, will agree with current management. Due to the stable renal function, we will be signing of f. Please recall if needed. We will try to follow up with this patient as an outpatient.
[2017-12-14] MEDS: Famotidine 20 MG TAB PO SCH (21:17)
[2017-12-14] MEDS: Divalproex Sodium DR 500 MG TAB PO SCH (21:18)
--- NOTE | 2017-12-14 22:54 | PDOC.PN ---
- Subjective Encounter Start Date: 12/14/17 Encounter Start Time: 09:30 Patient seen and examined for SI. No new complaints. No overnight events - Objective Resuscitation Status: Resuscitation Status FULL:Full Resuscitation MAR Reviewed: Yes Vital Signs & Weight: Vital Signs (12 hours) Temp Pulse Resp BP Pulse Ox 12/14/17 20:31 98.2 F 76 16 123/82 98 Weight Admit Weight 168 lb Weight 168 lb 14.4 oz I&O: 12/13/17 12/14/17 12/15/17 06:59 06:59 06:59 Intake Total 600 Balance 600 Result Diagrams: 12/14/17 04:13 12/14/17 04:13 Phys Exam - Physical Examination Constitutional: NAD Respiratory: no wheezing, no rhonchi Cardiovascular: RRR, no rub Gastrointestinal: soft, non-tender, positive bowel sounds Musculoskeletal: no edema Neurological: moves all 4 limbs Dx/Plan - Plan DVT proph w/heparin, DVT proph w/SCDs IMPRESSION: 1. Acute kidney injury with rhabdomyolysis/Dehydration. improved 2. Suicidal ideation. 3. Chronic anemia with recent EGD and colonoscopy. 4. Polysubstance abuse - Cocaine positive 5. Tobacco dependence. 6. Abnormal liver function tests, probably secondary to dehydration. improving 7. Metabolic acidosis. 8. Starvation ketosis. 9. Anxiety, depression, bipolar disorder, and schizophrenia. 10. Elevated troponins in the indeterminate range probably secondary to cocaine abuse/ CKD 3 PLAN: Stable for dc to [facility] when bed available Cont current meds as below Review of Systems - Review of Systems Respiratory: negative: Cough, Dry, Shortness of Breath, Hemoptysis, SOB with Excertion, Pleuritic Pain, Sputum, Wheezing Cardiovascular: negative: chest pain, palpitations, orthopnea, paroxysmal nocturnal dyspnea, edema, light headedness, other - Medications/Allergies Allergies/Adverse Reactions: Allergies Allergy/AdvReac Type Severity Reaction Status Date / Time No Known Drug Allergies Allergy Verified 11/09/17 12:56 shellfish derived Allergy Verified 12/10/17 15:40 Medications: Current Medications Acetaminophen (Tylenol) 650 mg PO Q4H PRN PRN Reason: Headache/Fever or Pain Last Admin: 12/12/17 15:50 Dose: 650 mg Aspirin (Ecotrin) 81 mg PO DAILY [facility] Last Admin: 12/14/17 08:16 Dose: 81 mg Benztropine Mesylate (Cogentin) 0.5 mg PO BID [facility] Last Admin: 12/14/17 21:18 Dose: 0.5 mg Buspirone HCl (Buspar) 15 mg PO BID [facility] Last Admin: 12/14/17 21:17 Dose: 15 mg Calcium Carbonate (Tums) 1,000 mg PO Q4H PRN PRN Reason: Heartburn or Indigestion Clonidine (Catapres) 0.1 mg PO Q4H PRN PRN Reason: Systolic BP > 180 Divalproex Sodium (Depakote) 500 mg PO HS [facility] Last Admin: 12/14/17 21:18 Dose: 500 mg Docusate Sodium (Colace) 100 mg PO BID [facility] Last Admin: 12/14/17 21:18 Dose: Not Given Famotidine (Pepcid) 20 mg PO QPM [facility] Last Admin: 12/14/17 21:17 Dose: 20 mg Fluoxetine HCl (Prozac) 40 mg PO DAILY [facility] Last Admin: 12/14/17 08:15 Dose: 40 mg Folic Acid (Folvite) 1 mg PO DAILY [facility] Last Admin: 12/14/17 08:16 Dose: 1 mg Haloperidol (Haldol) 5 mg PO BID [facility] Last Admin: 12/14/17 21:18 Dose: 5 mg Heparin Sodium (Porcine) (Heparin) 5,000 units SC BID [facility] Last Admin: 12/14/17 21:18 Dose: Not Given Magnesium Chloride (Slow-Mag) 128 mg PO BID [facility] Last Admin: 12/14/17 21:18 Dose: 128 mg Multivitamins (Theragran) 1 tab PO DAILY [facility] Last Admin: 12/14/17 08:15 Dose: 1 tab Nitroglycerin (Nitrostat) 0.4 mg PO Q5MIN PRN PRN Reason: Chest Pain Senna (Senokot) 2 tab PO HSPRN PRN PRN Reason: Constipation Sodium Chloride (Flush - Normal Saline) 10 ml IVF Q12HR [facility] Last Admin: 12/14/17 21:19 Dose: Not Given Sodium Chloride (Flush - Normal Saline) 10 ml IVF PRN PRN PRN Reason: Saline Flush Thiamine HCl (Thiamine) 100 mg PO DAILY [facility] Last Admin: 12/14/17 08:16 Dose: 100 mg
[2017-12-15] MEDS: Haloperidol 5 MG TAB PO SCH ×2 (09:14→23:03)
[2017-12-15] MEDS: Aspirin 81 mg Enteric Coated Tablet PO SCH (09:14)
[2017-12-15] MEDS: FLUoxetine HCl 20 MG CAP PO SCH (09:14)
[2017-12-15] MEDS: busPIRone HCl 10 MG TAB PO SCH ×2 (09:14→23:03)
[2017-12-15] MEDS: Benztropine 1 MG TAB PO SCH ×2 (09:15→23:02)
[2017-12-15] MEDS: Multivit, Therapeutic 1 TAB PO SCH (09:15)
[2017-12-15] MEDS: Magnesium Chloride 64 MG TAB PO SCH ×2 (09:16→23:04)
[2017-12-15] MEDS: Docusate 100 MG CAP PO SCH ×2 (09:16→23:05)
[2017-12-15] MEDS: Heparin 5,000 UNITS/ML VIAL SC SCH ×2 (09:16→23:05)
[2017-12-15] MEDS: Folic Acid 1 MG TAB PO SCH (09:16)
--- NOTE | 2017-12-15 22:41 | HP ---
HISTORY OF PRESENT ILLNESS: The patient was without complaint. Denies any problems overnight. He u nderstands that he is waiting for placement in [facility] PHYSICAL EXAMINATION: VITAL SIGNS: Temperature 97.8, pulse 79, respirations 16, O2 sat 96% on room air, BP 115/72. GENERAL: He is awake, alert, and appropriate. CARDIOVASCULAR: Regular rate and rhythm. LUNGS: Clear. ABDOMEN: Benign. EXTREMITIES: Warm and dry with no edema. IMPRESSION AND PLAN: 1. Suicidal ideation. The patient is pending placement in [facility] and is medically st able when a bed is available. 2. History of anxiety, depression, bipolar disorder, schizophrenia. 3. Acute kidney injury with rhabdomyolysis and dehydration. Renal function is stable. Nephrology h as signed off. 4. Dehydration, resolved. 5. Rhabdomyolysis, resolved. 6. Polysubstance abuse with positive cocaine on drug screen. 7. Chronic anemia. 8. Tobacco abuse. 9. Elevated troponins indeterminate, likely related to drug abuse and kidney disease. 10. Metabolic acidosis. 11. Abnormal liver function test. DISPOSITION: The patient is stable and medically cleared. He is awaiting placement at [facility].
[2017-12-15] MEDS: Famotidine 20 MG TAB PO SCH (23:03)
[2017-12-15] MEDS: Divalproex Sodium DR 500 MG TAB PO SCH (23:04)
[2017-12-16] MEDS: FLUoxetine HCl 20 MG CAP PO SCH (09:03)
[2017-12-16] MEDS: Haloperidol 5 MG TAB PO SCH ×2 (09:03→21:43)
[2017-12-16] MEDS: Aspirin 81 mg Enteric Coated Tablet PO SCH (09:03)
[2017-12-16] MEDS: Multivit, Therapeutic 1 TAB PO SCH (09:03)
[2017-12-16] MEDS: busPIRone HCl 10 MG TAB PO SCH ×2 (09:03→21:44)
[2017-12-16] MEDS: Benztropine 1 MG TAB PO SCH ×2 (09:04→21:44)
[2017-12-16] MEDS: Folic Acid 1 MG TAB PO SCH (09:05)
[2017-12-16] MEDS: Heparin 5,000 UNITS/ML VIAL SC SCH ×2 (09:05→21:45)
[2017-12-16] MEDS: Magnesium Chloride 64 MG TAB PO SCH ×2 (09:05→21:45)
[2017-12-16] MEDS: Docusate 100 MG CAP PO SCH ×2 (09:05→21:44)
--- NOTE | 2017-12-16 13:22 | PDOC.PN ---
- Subjective Encounter Start Date: 12/16/17 Encounter Start Time: 13:20 Complains of mild right lateral rib pain. Has been eating and drinking well. Ambulating. - Objective Resuscitation Status: Resuscitation Status FULL:Full Resuscitation Vital Signs & Weight: Vital Signs (12 hours) Temp Pulse Resp BP Pulse Ox 12/16/17 08:00 98.0 F 70 16 98 12/16/17 07:10 98.0 F 70 16 115/76 98 Weight Admit Weight 168 lb Weight 168 lb 14.4 oz Result Diagrams: 12/14/17 04:13 12/14/17 04:13 Phys Exam - Physical Examination Constitutional: NAD Respiratory: no wheezing, no rales, no rhonchi, clear to auscultation bilateral Cardiovascular: RRR, no significant murmur, no rub Gastrointestinal: soft, non-tender, no distention, positive bowel sounds Musculoskeletal: no edema No chest TTP Dx/Plan (1) Suicidal ideation Code(s): R45.851 - SUICIDAL IDEATIONS Status: Acute (2) Homicidal ideation Code(s): R45.850 - HOMICIDAL IDEATIONS Status: Acute (3) Acute on chronic kidney failure Code(s): N17.9 - ACUTE KIDNEY FAILURE, UNSPECIFIED; N18.9 - CHRONIC KIDNEY DISEASE, UNSPECIFIED Status: Acute Comment: likely pre-renal in etiology. Improving. Will continue IV hydration. nephrology workup/treatment in progress. (4) Cocaine abuse Code(s): F14.10 - COCAINE ABUSE, UNCOMPLICATED Status: Acute Comment: urinalysis positive for cocaine. Will continue supportive treatment. (5) Depression Code(s): F32.9 - MAJOR DEPRESSIVE DISORDER, SINGLE EPISODE, UNSPECIFIED Status : Acute Comment: Will continue current medication and have [facility] screen patient onces medically optimized. (6) Schizophrenia Code(s): F20.9 - SCHIZOPHRENIA, UNSPECIFIED Status: Acute Comment: continue current treatment. - Plan * Talked with [facility] last evening. He is still suicidal with a specific plan. He is homocidal in that the evil voices he hears are telling him he should take someone out with him when goes. Awaiting inpatient placement at [facility].
[2017-12-16] MEDS: Famotidine 20 MG TAB PO SCH (21:44)
[2017-12-16] MEDS: Divalproex Sodium DR 500 MG TAB PO SCH (21:44)
--- NOTE | 2017-12-17 08:36 | PDOC.PN ---
- Subjective Encounter Start Date: 12/17/17 Encounter Start Time: 08:15 No complaints. Right chest pain is resolved. - Objective Resuscitation Status: Resuscitation Status FULL:Full Resuscitation Vital Signs & Weight: Vital Signs (12 hours) Temp Pulse Resp BP Pulse Ox 12/17/17 07:25 98.1 F 63 16 111/75 97 Weight Admit Weight 168 lb Weight 168 lb 14.4 oz Result Diagrams: 12/14/17 04:13 12/14/17 04:13 Phys Exam - Physical Examination Constitutional: NAD Respiratory: no wheezing, no rales, no rhonchi, clear to auscultation bilateral Cardiovascular: RRR, no significant murmur Gastrointestinal: soft, non-tender, no distention Musculoskeletal: no edema Psychiatric: normal affect Dx/Plan (1) Suicidal ideation Code(s): R45.851 - SUICIDAL IDEATIONS Status: Acute (2) Homicidal ideation Code(s): R45.850 - HOMICIDAL IDEATIONS Status: Acute (3) Acute on chronic kidney failure Code(s): N17.9 - ACUTE KIDNEY FAILURE, UNSPECIFIED; N18.9 - CHRONIC KIDNEY DISEASE, UNSPECIFIED Status: Acute Comment: Improved, but not at baseline at last check. Will recheck today. (4) Cocaine abuse Code(s): F14.10 - COCAINE ABUSE, UNCOMPLICATED Status: Acute Comment: urinalysis positive for cocaine. Will continue supportive treatment. (5) Depression Code(s): F32.9 - MAJOR DEPRESSIVE DISORDER, SINGLE EPISODE, UNSPECIFIED Status : Acute Comment: Inpatient placement. (6) Schizophrenia Code(s): F20.9 - SCHIZOPHRENIA, UNSPECIFIED Status: Acute Comment: continue current treatment. - Plan * Awaiting [facility] placement.
[2017-12-17 09:03] LABS: #Eosinphils 0.8 thou/uL (0.0-0.7); #Lymphocytes 2.8 thou/uL (1.20-3.40); #Monocytes 0.4 thou/uL (0.11-0.59); #Neutrophils 3.4 thou/uL (1.40-6.50); %Basophils 0.6 % (0.0-1.0); %Eosinophils 10.9 % (0.0-10.0); %Lymphocytes 37.4 % (21.0-51.0); %Monocytes 5.2 % (0.0-10.0); %Neutrophils 45.9 % (42.0-75.0); Hemoglobin 8.6 g/dL (14.0-18.0); Mean Corpuscular HGB CONC 33.3 g/dL (32.0-36.0); Mean Corpuscular Hemoglobin 23.2 pg (27.0-31.0); Mean Corpuscular Volume 69.7 fL (78.0-98.0); Mean Platelet Volume 7.1 fL (7.4-10.4); Platelet Count 333 thou/uL (130-400); RBC Distribution Width 15.1 % (11.5-14.5); Red Blood Cell (RBC) Count 3.69 mill/uL (4.70-6.10); White Blood Cell (WBC) Count 7.5 thou/uL (4.8-10.8)
[2017-12-17 09:27] LABS: Anion Gap 14 mmol/L (10-20); BUN (Urea Nitrogen) 16 mg/dL (8.4-25.7); Calc. Creatinine Clearance 49 mL/min (70-130); Calcium 8.8 mg/dL (7.8-10.44); Carbon Dioxide 22 mmol/L (22-29); Chloride 107 mmol/L (98-107); Estimated GFR-MDRD 45; Glucose 139 mg/dL (70-105); Potassium 4.5 mmol/L (3.5-5.1); Sodium 138 mmol/L (136-145)
[2017-12-17] MEDS: Aspirin 81 mg Enteric Coated Tablet PO SCH (09:36)
[2017-12-17] MEDS: busPIRone HCl 10 MG TAB PO SCH ×2 (09:37→20:54)
[2017-12-17] MEDS: Benztropine 1 MG TAB PO SCH ×2 (09:37→20:54)
[2017-12-17] MEDS: Docusate 100 MG CAP PO SCH ×2 (09:38→20:55)
[2017-12-17] MEDS: Folic Acid 1 MG TAB PO SCH (09:38)
[2017-12-17] MEDS: Magnesium Chloride 64 MG TAB PO SCH ×2 (09:38→20:56)
[2017-12-17] MEDS: Haloperidol 5 MG TAB PO SCH ×2 (09:38→20:55)
[2017-12-17] MEDS: Heparin 5,000 UNITS/ML VIAL SC SCH ×2 (09:38→20:56)
[2017-12-17] MEDS: FLUoxetine HCl 20 MG CAP PO SCH (09:38)
[2017-12-17] MEDS: Multivit, Therapeutic 1 TAB PO SCH (09:39)
[2017-12-17] MEDS: Divalproex Sodium DR 500 MG TAB PO SCH (20:55)
[2017-12-17] MEDS: Famotidine 20 MG TAB PO SCH (20:55)
[2017-12-18] MEDS: Benztropine 1 MG TAB PO SCH ×2 (09:18→20:58)
[2017-12-18] MEDS: Aspirin 81 mg Enteric Coated Tablet PO SCH (09:18)
[2017-12-18] MEDS: busPIRone HCl 10 MG TAB PO SCH ×2 (09:19→20:59)
[2017-12-18] MEDS: Docusate 100 MG CAP PO SCH ×2 (09:20→21:00)
[2017-12-18] MEDS: Heparin 5,000 UNITS/ML VIAL SC SCH ×2 (09:20→21:00)
[2017-12-18] MEDS: FLUoxetine HCl 20 MG CAP PO SCH (09:20)
[2017-12-18] MEDS: Haloperidol 5 MG TAB PO SCH ×2 (09:20→21:00)
[2017-12-18] MEDS: Magnesium Chloride 64 MG TAB PO SCH ×2 (09:20→21:00)
[2017-12-18] MEDS: Folic Acid 1 MG TAB PO SCH (09:20)
[2017-12-18] MEDS: Multivit, Therapeutic 1 TAB PO SCH (09:21)
--- NOTE | 2017-12-18 13:43 | PDOC.PN ---
- Subjective Encounter Start Date: 12/18/17 Encounter Start Time: 11:25 Denies complaints. Sitting up in chair reading a newspaper. - Objective Resuscitation Status: Resuscitation Status FULL:Full Resuscitation Vital Signs & Weight: Vital Signs (12 hours) Temp Pulse Resp BP BP Pulse Ox 12/18/17 08:00 98.2 F 74 16 98 12/18/17 07:52 98.2 F 74 16 122/69 98 12/18/17 07:38 98.3 F 70 20 122/79 96 Weight Admit Weight 168 lb Weight 168 lb 14.4 oz I&O: 12/17/17 12/18/17 12/19/17 06:59 06:59 06:59 Intake Total 2100 Balance 2100 Result Diagrams: 12/17/17 08:48 12/17/17 08:48 Phys Exam - Physical Examination Constitutional: NAD Respiratory: no wheezing, no rales, no rhonchi, clear to auscultation bilateral Cardiovascular: RRR, no significant murmur Gastrointestinal: soft, non-tender, no distention, positive bowel sounds Musculoskeletal: no edema Dx/Plan (1) Suicidal ideation Code(s): R45.851 - SUICIDAL IDEATIONS Status: Acute (2) Homicidal ideation Code(s): R45.850 - HOMICIDAL IDEATIONS Status: Acute (3) Acute on chronic kidney failure Code(s): N17.9 - ACUTE KIDNEY FAILURE, UNSPECIFIED; N18.9 - CHRONIC KIDNEY DISEASE, UNSPECIFIED Status: Acute Comment: Improved, but not at baseline at last check. Will recheck today. (4) Cocaine abuse Code(s): F14.10 - COCAINE ABUSE, UNCOMPLICATED Status: Acute Comment: urinalysis positive for cocaine. Will continue supportive treatment. (5) Depression Code(s): F32.9 - MAJOR DEPRESSIVE DISORDER, SINGLE EPISODE, UNSPECIFIED Status : Acute Comment: Inpatient placement. (6) Schizophrenia Code(s): F20.9 - SCHIZOPHRENIA, UNSPECIFIED Status: Acute Comment: continue current treatment. - Plan * Medicallly stable for days. He is still waiting on [facility] bed. Discussed with [facility] today. Anticipate it not happen before Thursday.
[2017-12-18] MEDS ORDERED: ALPRAZolam 0.25 MG TAB PO SCH (18:00)
[2017-12-18] MEDS: Divalproex Sodium DR 500 MG TAB PO SCH (20:59)
[2017-12-18] MEDS: Famotidine 20 MG TAB PO SCH (21:00)
[2017-12-19] MEDS: Haloperidol 5 MG TAB PO SCH ×2 (09:25→21:29)
[2017-12-19] MEDS: busPIRone HCl 10 MG TAB PO SCH ×2 (09:26→21:29)
[2017-12-19] MEDS: Benztropine 1 MG TAB PO SCH ×2 (09:26→21:28)
[2017-12-19] MEDS: FLUoxetine HCl 20 MG CAP PO SCH (09:27)
[2017-12-19] MEDS: Folic Acid 1 MG TAB PO SCH (09:27)
[2017-12-19] MEDS: Aspirin 81 mg Enteric Coated Tablet PO SCH (09:28)
[2017-12-19] MEDS: Multivit, Therapeutic 1 TAB PO SCH (09:28)
[2017-12-19] MEDS: Heparin 5,000 UNITS/ML VIAL SC SCH ×2 (09:29→21:30)
[2017-12-19] MEDS: Docusate 100 MG CAP PO SCH ×2 (09:29→21:30)
[2017-12-19] MEDS: Magnesium Chloride 64 MG TAB PO SCH ×2 (12:39→21:30)
--- NOTE | 2017-12-19 12:56 | PDOC.PN ---
- Subjective Encounter Start Date: 12/19/17 Encounter Start Time: 11:00 No complaints except that he is getting a little depressed. Eating well. Normal B/B habits. - Objective Resuscitation Status: Resuscitation Status FULL:Full Resuscitation Vital Signs & Weight: Vital Signs (12 hours) Temp Pulse Resp BP Pulse Ox 12/19/17 08:00 97.6 F 84 20 12/19/17 07:23 97.6 F 84 20 109/79 95 Weight Admit Weight 168 lb Weight 168 lb 14.4 oz I&O: 12/18/17 12/19/17 12/20/17 06:59 06:59 06:59 Intake Total 2100 1320 Balance 2100 1320 Result Diagrams: 12/17/17 08:48 12/17/17 08:48 Phys Exam - Physical Examination Constitutional: NAD Respiratory: no wheezing, no rales, no rhonchi, clear to auscultation bilateral Cardiovascular: RRR, no significant murmur, no rub Gastrointestinal: soft, non-tender, no distention, positive bowel sounds Musculoskeletal: no edema Dx/Plan (1) Suicidal ideation Code(s): R45.851 - SUICIDAL IDEATIONS Status: Acute (2) Homicidal ideation Code(s): R45.850 - HOMICIDAL IDEATIONS Status: Acute (3) Acute on chronic kidney failure Code(s): N17.9 - ACUTE KIDNEY FAILURE, UNSPECIFIED; N18.9 - CHRONIC KIDNEY DISEASE, UNSPECIFIED Status: Acute Comment: Improved (4) Cocaine abuse Code(s): F14.10 - COCAINE ABUSE, UNCOMPLICATED Status: Acute Comment: urinalysis positive for cocaine. Will continue supportive treatment. (5) Depression Code(s): F32.9 - MAJOR DEPRESSIVE DISORDER, SINGLE EPISODE, UNSPECIFIED Status : Acute Comment: Inpatient placement. (6) Schizophrenia Code(s): F20.9 - SCHIZOPHRENIA, UNSPECIFIED Status: Acute Comment: continue current treatment. - Plan * Still awaiting [facility] bed. Medically stable.
[2017-12-19] MEDS ORDERED: ALPRAZolam 0.25 MG TAB PO SCH (17:45)
[2017-12-19] MEDS: Famotidine 20 MG TAB PO SCH (21:28)
[2017-12-19] MEDS: Divalproex Sodium DR 500 MG TAB PO SCH (21:29)
[2017-12-20] MEDS: busPIRone HCl 10 MG TAB PO SCH ×2 (08:16→20:36)
[2017-12-20] MEDS: Benztropine 1 MG TAB PO SCH ×2 (08:17→20:37)
[2017-12-20] MEDS: Aspirin 81 mg Enteric Coated Tablet PO SCH (08:18)
[2017-12-20] MEDS: FLUoxetine HCl 20 MG CAP PO SCH (08:18)
[2017-12-20] MEDS: Multivit, Therapeutic 1 TAB PO SCH (08:18)
[2017-12-20] MEDS: Heparin 5,000 UNITS/ML VIAL SC SCH ×2 (08:19→20:39)
[2017-12-20] MEDS: Docusate 100 MG CAP PO SCH ×2 (08:19→20:37)
[2017-12-20] MEDS: Haloperidol 5 MG TAB PO SCH ×2 (08:19→20:37)
[2017-12-20] MEDS: Folic Acid 1 MG TAB PO SCH (08:19)
[2017-12-20] MEDS: Magnesium Chloride 64 MG TAB PO SCH ×2 (09:10→20:44)
--- NOTE | 2017-12-20 13:53 | PDOC.PN ---
- Subjective Encounter Start Date: 12/20/17 Encounter Start Time: 11:30 No complaints. - Objective Resuscitation Status: Resuscitation Status FULL:Full Resuscitation Vital Signs & Weight: Vital Signs (12 hours) Temp Pulse Resp BP Pulse Ox 12/20/17 08:00 98.5 F 68 18 12/20/17 07:38 98.5 F 68 18 121/74 98 Weight Admit Weight 168 lb Weight 168 lb 14.4 oz I&O: 12/19/17 12/20/17 12/21/17 06:59 06:59 06:59 Intake Total 1320 1200 600 Balance 1320 1200 600 Result Diagrams: 12/17/17 08:48 12/17/17 08:48 Phys Exam - Physical Examination Constitutional: NAD Respiratory: no wheezing, no rales, no rhonchi, clear to auscultation bilateral Cardiovascular: RRR, no significant murmur, no rub Gastrointestinal: soft, non-tender Musculoskeletal: no edema Dx/Plan (1) Suicidal ideation Code(s): R45.851 - SUICIDAL IDEATIONS Status: Acute (2) Homicidal ideation Code(s): R45.850 - HOMICIDAL IDEATIONS Status: Acute (3) Acute on chronic kidney failure Code(s): N17.9 - ACUTE KIDNEY FAILURE, UNSPECIFIED; N18.9 - CHRONIC KIDNEY DISEASE, UNSPECIFIED Status: Acute Comment: Improved (4) Cocaine abuse Code(s): F14.10 - COCAINE ABUSE, UNCOMPLICATED Status: Acute Comment: urinalysis positive for cocaine. Will continue supportive treatment. (5) Depression Code(s): F32.9 - MAJOR DEPRESSIVE DISORDER, SINGLE EPISODE, UNSPECIFIED Status : Acute Comment: Inpatient placement. (6) Schizophrenia Code(s): F20.9 - SCHIZOPHRENIA, UNSPECIFIED Status: Acute Comment: continue current treatment. - Plan * Still waiting on [facility] placement. Requiring an occasional xanax. Medically stable.
[2017-12-20] MEDS: ALPRAZolam 0.25 MG TAB PO PRN (17:34)
[2017-12-20] MEDS: Famotidine 20 MG TAB PO SCH (20:37)
[2017-12-20] MEDS: Divalproex Sodium DR 500 MG TAB PO SCH (20:37)
[2017-12-21 07:31] VITALS: TEMP 98.2
[2017-12-21] MEDS: busPIRone HCl 10 MG TAB PO SCH ×2 (08:24→21:05)
[2017-12-21] MEDS: Aspirin 81 mg Enteric Coated Tablet PO SCH (08:25)
[2017-12-21] MEDS: Multivit, Therapeutic 1 TAB PO SCH (08:25)
[2017-12-21] MEDS: FLUoxetine HCl 20 MG CAP PO SCH (08:25)
[2017-12-21] MEDS: Haloperidol 5 MG TAB PO SCH ×2 (08:26→21:05)
[2017-12-21] MEDS: Folic Acid 1 MG TAB PO SCH (08:26)
[2017-12-21] MEDS: Docusate 100 MG CAP PO SCH ×2 (08:27→21:06)
[2017-12-21] MEDS: Heparin 5,000 UNITS/ML VIAL SC SCH ×2 (08:27→21:06)
[2017-12-21 10:50] LABS: #Basophils 0.1 thou/uL (0.0-0.2); #Eosinphils 0.6 thou/uL (0.0-0.7); #Lymphocytes 2.5 thou/uL (1.20-3.40); #Monocytes 0.5 thou/uL (0.11-0.59); #Neutrophils 3.2 thou/uL (1.40-6.50); %Basophils 0.7 % (0.0-1.0); %Eosinophils 9.2 % (0.0-10.0); %Monocytes 7.9 % (0.0-10.0); %Neutrophils 46.2 % (42.0-75.0); Hemoglobin 8.6 g/dL (14.0-18.0); Mean Corpuscular HGB CONC 33.4 g/dL (32.0-36.0); Mean Corpuscular Hemoglobin 23.4 pg (27.0-31.0); Mean Corpuscular Volume 69.9 fL (78.0-98.0); Mean Platelet Volume 7.5 fL (7.4-10.4); Platelet Count 349 thou/uL (130-400); RBC Distribution Width 15.4 % (11.5-14.5); Red Blood Cell (RBC) Count 3.69 mill/uL (4.70-6.10); White Blood Cell (WBC) Count 6.8 thou/uL (4.8-10.8)
[2017-12-21 11:12] LABS: Anion Gap 13 mmol/L (10-20); BUN (Urea Nitrogen) 15 mg/dL (8.4-25.7); Calc. Creatinine Clearance 60 mL/min (70-130); Calcium 9.1 mg/dL (7.8-10.44); Carbon Dioxide 21 mmol/L (22-29); Chloride 109 mmol/L (98-107); Estimated GFR-MDRD 57; Glucose 113 mg/dL (70-105); Magnesium 1.6 mg/dL (1.6-2.6); Potassium 4.4 mmol/L (3.5-5.1); Sodium 139 mmol/L (136-145)
[2017-12-21] MEDS: Magnesium Chloride 64 MG TAB PO SCH ×2 (11:23→21:06)
[2017-12-21] MEDS: Benztropine 1 MG TAB PO SCH ×2 (12:56→21:05)
[2017-12-21] MEDS: ALPRAZolam 0.25 MG TAB PO PRN (13:00)
--- NOTE | 2017-12-21 16:25 | PDOC.PN ---
- Subjective Encounter Start Date: 12/21/17 Encounter Start Time: 11:30 Subjective: pt up in bed no complains - Objective Resuscitation Status: Resuscitation Status FULL:Full Resuscitation Vital Signs & Weight: Vital Signs (12 hours) Temp Pulse Resp BP Pulse Ox 12/21/17 08:00 98.2 F 79 16 97 12/21/17 07:30 98.2 F 79 16 111/72 97 Weight Admit Weight 168 lb Weight 168 lb 14.4 oz I&O: 12/20/17 12/21/17 12/22/17 06:59 06:59 06:59 Intake Total 1200 1600 550 Balance 1200 1600 550 Result Diagrams: 12/21/17 10:32 12/21/17 10:32 Phys Exam - Physical Examination Neck: no nodes, no JVD, supple, full ROM Respiratory: no wheezing, no rales, no rhonchi, wheezing present, clear to auscultation bilateral Cardiovascular: RRR, no significant murmur, no rub, gallop, irregular Dx/Plan (1) Suicidal ideation Code(s): R45.851 - SUICIDAL IDEATIONS Status: Acute (2) Acute on chronic kidney failure Code(s): N17.9 - ACUTE KIDNEY FAILURE, UNSPECIFIED; N18.9 - CHRONIC KIDNEY DISEASE, UNSPECIFIED Status: Acute Comment: Improved (3) Rhabdomyolysis Code(s): M62.82 - RHABDOMYOLYSIS Status: Acute Comment: Resolving (4) Homicidal ideation Code(s): R45.850 - HOMICIDAL IDEATIONS Status: Acute - Plan pt waiting on bed inpatient psy -: he is medically stable to be discharged * . Review of Systems - Review of Systems Respiratory: negative: Cough, Dry, Shortness of Breath, Hemoptysis, SOB with Excertion, Pleuritic Pain, Sputum, Wheezing Cardiovascular: negative: chest pain, palpitations, orthopnea, paroxysmal nocturnal dyspnea, edema, light headedness, other Gastrointestinal: negative: Nausea, Vomiting, Abdominal Pain, Diarrhea, Constipation, Melena, Hematochezia, Other - Medications/Allergies Allergies/Adverse Reactions: Allergies Allergy/AdvReac Type Severity Reaction Status Date / Time No Known Drug Allergies Allergy Verified 11/09/17 12:56 shellfish derived Allergy Verified 12/10/17 15:40 Medications: Current Medications Acetaminophen (Tylenol) 650 mg PO Q4H PRN PRN Reason: Headache/Fever or Pain Last Admin: 12/12/17 15:50 Dose: 650 mg Alprazolam (Xanax) 0.25 mg PO TIDPRN PRN PRN Reason: Anxiety Last Admin: 12/21/17 13:00 Dose: 0.25 mg Aspirin (Ecotrin) 81 mg PO DAILY [facility] Last Admin: 12/21/17 08:25 Dose: 81 mg Benztropine Mesylate (Cogentin) 0.5 mg PO BID [facility] Last Admin: 12/21/17 12:56 Dose: 0.5 mg Buspirone HCl (Buspar) 15 mg PO BID [facility] Last Admin: 12/21/17 08:24 Dose: 15 mg Calcium Carbonate (Tums) 1,000 mg PO Q4H PRN PRN Reason: Heartburn or Indigestion Clonidine (Catapres) 0.1 mg PO Q4H PRN PRN Reason: Systolic BP > 180 Divalproex Sodium (Depakote) 500 mg PO HS [facility] Last Admin: 12/20/17 20:37 Dose: 500 mg Docusate Sodium (Colace) 100 mg PO BID [facility] Last Admin: 12/21/17 08:27 Dose: Not Given Famotidine (Pepcid) 20 mg PO QPM [facility] Last Admin: 12/20/17 20:37 Dose: 20 mg Fluoxetine HCl (Prozac) 40 mg PO DAILY [facility] Last Admin: 12/21/17 08:25 Dose: 40 mg Folic Acid (Folvite) 1 mg PO DAILY [facility] Last Admin: 12/21/17 08:26 Dose: 1 mg Haloperidol (Haldol) 5 mg PO BID [facility] Last Admin: 12/21/17 08:26 Dose: 5 mg Heparin Sodium (Porcine) (Heparin) 5,000 units SC BID [facility] Last Admin: 12/21/17 08:27 Dose: Not Given Magnesium Chloride (Slow-Mag) 128 mg PO BID [facility] Last Admin: 12/21/17 11:23 Dose: 128 mg Multivitamins (Theragran) 1 tab PO DAILY [facility] Last Admin: 12/21/17 08:25 Dose: 1 tab Nitroglycerin (Nitrostat) 0.4 mg PO Q5MIN PRN PRN Reason: Chest Pain Senna (Senokot) 2 tab PO HSPRN PRN PRN Reason: Constipation Sodium Chloride (Flush - Normal Saline) 10 ml IVF Q12HR [facility] Last Admin: 12/21/17 08:28 Dose: Not Given Sodium Chloride (Flush - Normal Saline) 10 ml IVF PRN PRN PRN Reason: Saline Flush Thiamine HCl (Thiamine) 100 mg PO DAILY [facility] Last Admin: 12/21/17 08:25 Dose: 100 mg
[2017-12-21 17:25] LABS: Iron 125 ug/dL (65-175); Iron Binding Capacity, Total 360 mcg/dL (261-462)
[2017-12-21 17:36] LABS: Reticulocyte Count 2.8 % (0.5-1.5)
[2017-12-21] MEDS: Famotidine 20 MG TAB PO SCH (21:05)
[2017-12-21] MEDS: Divalproex Sodium DR 500 MG TAB PO SCH (21:06)
[2017-12-22] MEDS: Benztropine 1 MG TAB PO SCH ×2 (10:38→20:46)
[2017-12-22] MEDS: Aspirin 81 mg Enteric Coated Tablet PO SCH (10:38)
[2017-12-22] MEDS: Haloperidol 5 MG TAB PO SCH ×2 (10:39→20:49)
[2017-12-22] MEDS: Folic Acid 1 MG TAB PO SCH (10:39)
[2017-12-22] MEDS: FLUoxetine HCl 20 MG CAP PO SCH (10:39)
[2017-12-22] MEDS: Docusate 100 MG CAP PO SCH ×2 (10:39→20:49)
[2017-12-22] MEDS: busPIRone HCl 10 MG TAB PO SCH ×2 (10:39→20:47)
[2017-12-22] MEDS: Heparin 5,000 UNITS/ML VIAL SC SCH ×2 (10:39→20:49)
[2017-12-22] MEDS: Multivit, Therapeutic 1 TAB PO SCH (10:40)
[2017-12-22] MEDS: Magnesium Chloride 64 MG TAB PO SCH ×2 (12:37→20:49)
[2017-12-22] MEDS: ALPRAZolam 0.25 MG TAB PO PRN (15:38)
[2017-12-22] MEDS: Famotidine 20 MG TAB PO SCH (20:47)
[2017-12-22] MEDS: Divalproex Sodium DR 500 MG TAB PO SCH (20:49)
[2017-12-22 21:14] VITALS: BP 112/70
--- NOTE | 2017-12-24 02:20 | DIS ---
DATE OF ADMISSION: 11/30/2017 DATE OF DISCHARGE: 12/22/2017 DISCHARGE DIAGNOSES: 1. Suicidal ideation. 2. Rhabdo. 3. Acute kidney injury. 4. History of schizophrenia. HOSPITAL COURSE: The patient is a very pleasant 52-year-old male who initially presented to the hosp ital after having generalized muscle body aches and pains. He was found to have his CK elevation was about 10,000. The patient was also found to have acute kidney injury. His creatinine was 4.78. At this time, Nephrology was consulted. The patient was treated with IV hydration and with also some b icarbonate. He did have a renal ultrasound that was done, which did not indicate any acute high grad e stenosis. Patient's creatinine continued to improve throughout the hospital stay. Given his suici gifty ideation and also homicidal ideation, mental health came to assess the patient and he was put on a suicidal watch and then was discharged to [facility] yesterday. PHYSICAL EXAMINATION: Upon discharge: VITAL SIGNS: 98.2, 80, 16, 98% on room air, blood pressure 112/70. GENERAL: He is awake, alert, oriented x3, does not appear in distress. CARDIOVASCULAR: S1, S2 present. No murmurs, rubs or gallops. ABDOMEN: Soft, nontender. Bowel sounds are present x2. EXTREMITIES: No edema. DISCHARGE MEDICATIONS: The patient was discharged home on Xanax 0.25 mg t.i.d. p.r.n., aspirin 81 mg daily, Pepcid 20 mg q.p.m., folic acid 1 mg p.o. daily, 5 mg b.i.d., mag 128 b.i.d., multivita min 1 tab p.o. daily, Senokot 2 tabs at bedtime p.r.n., Thiamine 100 mg daily, benztropine 0.5 b.i.d. , Prozac 40 mg daily, buspirone 15 mg b.i.d., Depakote 1000 p.o. at bedtime, Haldol 30 mg at bedtime and Vistaril 50 mg b.i.d. DISCHARGE INSTRUCTIONS: The patient will be discharged to [facility]. He will follow up as needed.
== END 2017-12-22 23:50 | DRG 683 ==
LOC: ERS 12:09 → ERHOLD 15:27 → 2NO 12-01 15:32 → T4-B 12-06 15:18
PROVIDERS: ADMIT Internal Medicine; ATTEND Internal Medicine
DX: N17.9 Acute kidney failure, unspecified (principal); R45.851 Suicidal ideations; M62.82 Rhabdomyolysis; E87.2 Acidosis; R45.850 Homicidal ideations; E86.0 Dehydration; N18.3 Chronic kidney disease, stage 3 (moderate); F20.9 Schizophrenia, unspecified; D64.89 Other specified anemias; F41.8 Other specified anxiety disorders; F31.9 Bipolar disorder, unspecified; E88.89 Other specified metabolic disorders; R97.0 Elevated carcinoembryonic antigen [CEA]; F14.188 Cocaine abuse with other cocaine-induced disorder; R74.8 Abnormal levels of other serum enzymes; F17.210 Nicotine dependence, cigarettes, uncomplicated; Z59.0 Homelessness; Z91.013 Allergy to seafood
CPT/HCPCS: 36415; 36416; 76770; 80048; 80053; 80306; 80307; 81003; 82010; 82550; 82570; 83540; 83550; 83605; 83735; 84100; 84300; 84443; 84484; 85014; 85018; 85025; 85046; 85049; 93005; 94760; 96361; 96365; 96366; 96372; A4216; J1644; J3475; J7050; J7070; J7120